=== PATIENT | female | born 1935 | race African-American/Black ===

== ENCOUNTER 2016-05-23 05:26 | Emergency (ER) | payer MEDICARE ==
[~2016-05-23] VITALS: Ht 154.9 cm; Wt 75.7 kg
[2016-05-23] MEDS ORDERED: ACETAMINOPHEN 500 MG TABLET PO ONE (07:00)
[2016-05-23 07:04] VITALS: BP 194/77
--- NOTE | 2016-05-23 07:07 | RAD ---
Left knee, 3 views, 05/23/2016: History: Fall, pain There is moderate marginal spurring at the knee joint, most prominent laterally. There is mild spurring at the patellofemoral articulation. No acute fracture or dislocation is identified. Moderate chondrocalcinosis is present. There is moderate subcutaneous edema anteriorly. IMPRESSION: 1. Moderate degenerative change with chondrocalcinosis. 2. No acute bony abnormality is detected.
--- NOTE | 2016-05-23 07:13 | PHYS DOC ---
Past Medical History Past Medical History: Dementia, High Cholesterol, Hypertension, Hypothyroid Past Surgical History: Appendectomy, Hysterectomy Alcohol Use: None Drug Use: None Adult General Chief Complaint Chief Complaint: MECHANICAL FALL HPI HPI Patient is a 80 year old female who presents with with lateral knee pain after trip and fall yesterday. She landed on anterior lateral knee. She has achy, constant pain, worse with range of motion. She has been able to walk, but has persistent pain. She denies numbness, tingling, weakness, other injury. She specifically denies dizziness to this provider. She denies chest pain, loss of consciousness, vision changes, headache, neck pain, back pain, abdominal pain, dyspnea, nausea or vomiting, diarrhea, dysuria. Review of Systems Review of Systems Constitutional: Denies fever or chills [] Eyes: Denies change in visual acuity, redness, or eye pain [] HENT: Denies nasal congestion or sore throat [] Respiratory: Denies cough or shortness of breath [] Cardiovascular: No additional information not addressed in HPI [] GI: Denies abdominal pain, nausea, vomiting, bloody stools or diarrhea [] : Denies dysuria or hematuria [] Musculoskeletal: Denies back pain [] Integument: Denies rash or skin lesions [] Neurologic: Denies headache, focal weakness or sensory changes [] Endocrine: Denies polyuria or polydipsia [] Current Medications Current Medications Current Medications Medications (Trade) Dose Ordered Sig/Jose Start Time Stop Time Status Last Admin Dose Admin Acetaminophen (Tylenol) 500 mg 1X ONCE 05/23/16 07:00 05/23/16 07:01 DC 05/23/16 06:50 500 MG Allergies Allergies Allergies Coded Allergies Type Severity Reaction Last Updated Verified Penicillins Allergy Intermediate 05/23/16 Yes Physical Exam Physical Exam Constitutional: Well developed, well nourished, no acute distress, non-toxic appearance. [] HENT: Normocephalic, atraumatic, bilateral external ears normal, oropharynx moist, nose normal. [] Eyes: PERRLA, EOMI. [] Neck: Normal range of motion, supple. [] Cardiovascular:Heart rate regular rhythm [] Lungs & Thorax: Bilateral breath sounds clear to auscultation [] Abdomen: Bowel sounds normal, soft, no tenderness. [] Skin: Warm, dry, no erythema, no rash. [] Back: Normal range of motion. [] Extremities: Left lower extremity with slight swelling and ecchymosis to lateral anterior knee with no other obvious deformity or discoloration, has tenderness about left joint line with no patellar tenderness, maintains full range of motion of hip/knee/ankle/toes, equal DP pulses, sensation intact to light touch Neurologic: Alert and oriented X 3, normal motor function, normal sensory function, no focal deficits noted. [] Psychologic: Affect normal, judgement normal, mood normal. [] Current Patient Data Vital Signs Vital Signs Date Time Temp Pulse Resp B/P Pulse Ox O2 Delivery O2 Flow Rate FiO2 05/23/16 07:04 55 20 194/77 95 Room Air 05/23/16 05:45 97.8 97.8 Radiology/Procedures Radiology/Procedures Left knee x-ray as interpreted by me with no acute fracture or dislocation Course & Med Decision Making Course & Med Decision Making Pertinent Labs and Imaging studies reviewed. (See chart for details) Discussed routine care for muscular skeletal injuries. Return precautions given. She understands and agrees with plan. Dragon Disclaimer Dragon Disclaimer This electronic medical record was generated, in whole or in part, using a voice recognition dictation system. Departure Departure Impression: Primary Impression: Left knee pain Disposition: HOME, SELF-CARE Condition: STABLE Referrals: JOSIE ZENDEJAS MD (PCP) Patient Instructions: Knee Pain, [id number] Additional Instructions: Take Tylenol or ibuprofen as needed for pain. Follow-up with your primary care doctor. Return for any concerns. Problem Qualifiers Primary Impression: Left knee pain Chronicity: acute Qualified Code: M25.562 - Pain in left knee Chantel TERRY MD May 23, 2016 07:13
== END 2016-05-23 07:12 | disposition home or self-care (01) ==
LOC: ER 05:26
DX: M25.562 Pain in left knee (principal); E03.9 Hypothyroidism, unspecified; E78.00 Pure hypercholesterolemia, unspecified; F03.90 Unspecified dementia, unspecified severity, without behavioral disturbance, psychotic disturbance, mood disturbance, and anxiety; I10 Essential (primary) hypertension; Z88.0 Allergy status to penicillin; W01.0XXA Fall on same level from slipping, tripping and stumbling without subsequent striking against object, initial encounter; Y93.89 Activity, other specified; Y99.8 Other external cause status; Y92.89 Other specified places as the place of occurrence of the external cause
CPT/HCPCS: 73562; 99284

== ENCOUNTER 2017-07-05 13:19 | Emergency (ER) | payer MEDICARE, OTHER ==
[2017-07-05] MEDS: ACETAMINOPHEN 325 MG TABLET. PO (14:50)
[2017-07-05] MEDS: DIPHTH,PERTUSS(ACELL),TET TOX 0.5 ML DISP.SYRIN. VAX IM (14:50)
[2017-07-05] MEDS: BACITRACIN TOPICAL OINT 14GM TUBE. TP (14:50)
== END 2017-07-05 17:15 | disposition home or self-care (01) ==
LOC: ER 13:19
DX: S00.03XA Contusion of scalp, initial encounter (principal); S40.011A Contusion of right shoulder, initial encounter; S60.221A Contusion of right hand, initial encounter; F03.90 Unspecified dementia, unspecified severity, without behavioral disturbance, psychotic disturbance, mood disturbance, and anxiety; E78.00 Pure hypercholesterolemia, unspecified; E03.9 Hypothyroidism, unspecified; G56.00 Carpal tunnel syndrome, unspecified upper limb; I10 Essential (primary) hypertension; Z88.0 Allergy status to penicillin; W01.198A Fall on same level from slipping, tripping and stumbling with subsequent striking against other object, initial encounter; Y93.89 Activity, other specified; Y99.8 Other external cause status; Y92.89 Other specified places as the place of occurrence of the external cause
CPT/HCPCS: 70450; 70486; 72125; 73030; 73130; 90471; 90715; 99284-25

== ENCOUNTER 2018-06-03 08:18 | Inpatient (IN) | payer MEDICARE, OTHER ==
[~2018-06-03] VITALS: Ht 157.5 cm; Wt 68.5 kg
[~2018-06-03 08:18] MED LIST: ACET325T9 PO; ACET500T68 PO; AMLO10TA8 PO; ASPI-630 PO; CALC-299 PO; CARB200T PO; DONE10TA7 PO; FLAX10003 PO; FURO20TA3 PO; GUAI100L34 PO; HYDR-2761 PO; HYDR12.575 PO; ISOS30TA4 PO; LEVO88TA4 PO; LISI-130 PO; OSEL30CA PO; PRAV40TA2 PO; ZINC30TA2 PO
--- NOTE | 2018-06-03 08:52 | PHYS DOC ---
Past Medical History Past Medical History: Cancer, Dementia, High Cholesterol, Hypertension, Hypothyroid Past Surgical History: Appendectomy, Cancer Surgery, Hysterectomy Additional Information: Denies smoking Alcohol Use: None Drug Use: None Adult General Chief Complaint Chief Complaint: MECHANICAL FALL HPI HPI Patient is a 82 year old female resident of assisted living home brought in by EMS because of a fall. Patient had a fall from her bed that is about 4 feet high when she tried to reach her comb. Patient denies loss of consciousness and complaining of bilateral hip pain and rated her pain as a severe pain. She was not able to ambulated or moving her lower extremities. Review of Systems Review of Systems Constitutional: Denies fever or chills [] Eyes: Denies change in visual acuity, redness, or eye pain [] HENT: Denies nasal congestion or sore throat [] Respiratory: Denies cough or shortness of breath [] Cardiovascular: No additional information not addressed in HPI [] GI: Denies abdominal pain, nausea, vomiting, bloody stools or diarrhea [] : Denies dysuria or hematuria [] Musculoskeletal: Denies back pain, reports joint pain [] Integument: Denies rash or skin lesions [] Neurologic: Denies headache, focal weakness or sensory changes [] Endocrine: Denies polyuria or polydipsia [] All other systems were reviewed and found to be within normal limits, except as documented in this note. Current Medications Current Medications Current Medications Medications (Trade) Dose Ordered Sig/[facility] Start Time Stop Time Status Last Admin Dose Admin Fentanyl Citrate (Fentanyl 2ml Vial) 50 mcg 1X ONCE 06/03/18 09:00 06/03/18 09:01 DC 06/03/18 09:00 50 MCG Allergies Allergies Allergies Coded Allergies Type Severity Reaction Last Updated Verified Penicillins Allergy Intermediate 05/23/16 Yes Physical Exam Physical Exam Constitutional: Well nourished, mild distress, non-toxic appearance. [] HENT: Normocephalic, atraumatic. Eyes: PERRLA, EOMI, conjunctiva normal, no discharge. [] Neck: Normal range of motion, no tenderness, supple, no stridor. [] Cardiovascular:Heart rate regular rhythm, no murmur [] Lungs & Thorax: Bilateral breath sounds clear to auscultation [] Abdomen: Bowel sounds normal, soft, no tenderness, no masses, no pulsatile masses. [] Skin: Warm, dry, no erythema, no rash. [] Back: No tenderness, no CVA tenderness. [] Extremities: Shortening of right lower extremity, painful range of motion of bilateral lower extremity, no deformity or neurovascular deficit, no cyanosis, no clubbing, no edema. [] Neurologic: Alert and oriented X 2, normal motor function, normal sensory function, no focal deficits noted. [] Psychologic: Affect normal, judgement normal, mood normal. [] Current Patient Data Vital Signs Vital Signs Date Time Temp Pulse Resp B/P (MAP) Pulse Ox O2 Delivery O2 Flow Rate FiO2 06/03/18 12:30 84 06/03/18 11:30 96 06/03/18 09:00 16 06/03/18 08:42 97.9 151/74 (99) Room Air 97.9 Lab Values Laboratory Tests Test 06/03/18 08:35 06/03/18 09:28 Prothrombin Time 13.8 SEC (11.7-14.0) Prothrombin Time INR 1.1 (0.8-1.1) PTT 32 SEC (24-38) Sodium Level 143 mmol/L (136-145) Potassium Level 4.3 mmol/L (3.5-5.1) Chloride Level 101 mmol/L (98-107) Carbon Dioxide Level 26 mmol/L (21-32) Anion Gap 16 (6-14) H Blood Urea Nitrogen 16 mg/dL (7-20) Creatinine 1.0 mg/dL (0.6-1.0) Estimated GFR (Cockcroft-Gault) 64.2 BUN/Creatinine Ratio 16 (6-20) Glucose Level 123 mg/dL (70-99) H Calcium Level 9.6 mg/dL (8.5-10.1) Total Bilirubin 0.4 mg/dL (0.2-1.0) Aspartate Amino Transferase (AST) 26 U/L (15-37) Alanine Aminotransferase (ALT) 21 U/L (14-59) Alkaline Phosphatase 100 U/L (46-116) Total Protein 7.9 g/dL (6.4-8.2) Albumin 3.5 g/dL (3.4-5.0) Albumin/Globulin Ratio 0.8 (1.0-1.7) L White Blood Count 11.6 x10^3/uL (4.0-11.0) H Red Blood Count 5.06 x10^6/uL (3.50-5.40) Hemoglobin 14.1 g/dL (12.0-15.5) Hematocrit 43.8 % (36.0-47.0) Mean Corpuscular Volume 87 fL (79-100) Mean Corpuscular Hemoglobin 28 pg (25-35) Mean Corpuscular Hemoglobin Concent 32 g/dL (31-37) Red Cell Distribution Width 14.7 % (11.5-14.5) H Platelet Count 343 x10^3/uL (140-400) Neutrophils (%) (Auto) 91 % (31-73) H Lymphocytes (%) (Auto) 4 % (24-48) L Monocytes (%) (Auto) 4 % (0-9) Eosinophils (%) (Auto) 0 % (0-3) Basophils (%) (Auto) 1 % (0-3) Neutrophils # (Auto) 10.6 x10^3uL (1.8-7.7) H Lymphocytes # (Auto) 0.5 x10^3/uL (1.0-4.8) L Monocytes # (Auto) 0.5 x10^3/uL (0.0-1.1) Eosinophils # (Auto) 0.0 x10^3/uL (0.0-0.7) Basophils # (Auto) 0.1 x10^3/uL (0.0-0.2) Segmented Neutrophils % 83 % (35-66) H Band Neutrophils % 8 % (0-9) Lymphocytes % 4 % (24-48) L Monocytes % 4 % (0-10) Basophils % 1 % (0-3) Platelet Estimate Adequate (ADEQUATE) Large Platelets Few Ovalocytes Few Laboratory Tests 06/03/18 09:28 Laboratory Tests 06/03/18 08:35 EKG EKG [] Radiology/Procedures Radiology/Procedures [facility] [address] [place] [address] IMAGING REPORT Signed PATIENT: NIMCO KELLER ACCOUNT: [id number] : 1935 LOCATION: ER AGE: 82 SEX: F EXAM STATUS: REG ER ORD. PHYSICIAN: BRUCE LOZANO MD REASON: fall PROCEDURE: HIP BILATERAL WITH PELVIS EXAM: AP pelvis, AP and lateral views of both hips DATE: 06/03/2018 8:42 AM INDICATION: patient fell, bilateral hip pain. COMPARISON: No Prior FINDINGS: No evidence of acute fracture or dislocation. Marked osteopenia limits evaluation. Chondrocalcinosis bilateral hip joints and symphysis pubis. Bilateral hip joint space narrowing. Lower lumbar spine and SI joint degenerative changes are also seen. Atherosclerotic vascular calcifications are seen. Of note, stool and gas limits evaluation of the sacrum. IMPRESSION: Within the constraints of osteopenia, no evidence of acute fracture or dislocation. Given degree of osteopenia, if there is persistent clinical concern for fracture, MRI is recommended. Chondrocalcinosis of the hip joints and symphysis pubis, CPPD deposition Bilateral hip joint, SI joints and lower lumbar spine degenerative changes are seen. Electronically signed by: Brayden Stevens MD (06/03/2018 9:14 AM) [facility] DICTATED and SIGNED BY: BRAYDEN STEVENS MD DATE: 06/03/18 0911 [facility] [address] [place] [address] IMAGING REPORT Signed PATIENT: NIMCO KELLER ACCOUNT: [id number] : 1935 LOCATION: ER AGE: 82 SEX: F EXAM STATUS: REG ER ORD. PHYSICIAN: BRUCE LOZANO MD REASON: fall PROCEDURE: CT HEAD AND CERVICAL SPINE WO CT scan of the head without contrast 06/03/2018 Clinical History: Fall with head trauma. Technique: Unenhanced, contiguous, 5 mm axial sections were obtained through the head. One or more of the following individualized dose reduction techniques were utilized for this study: 1. Automated exposure control. 2. Adjustment of the mA and/or kV according to patient size. 3. Use of iterative reconstruction technique. Findings: Comparison study is dated 05/20/2018. There is generalized parenchymal atrophy. Areas of decreased attenuation are seen within the periventricular and subcortical white matter of both cerebral hemispheres consistent with areas of small vessel ischemic disease. No acute parenchymal abnormality is seen. No extra-axial fluid collection is noted. No skull fracture is seen. Mild to moderate mucosal thickening is seen involving the right maxillary sinus and scattered throughout ethmoid air cells. Impression: No acute intracranial abnormality is seen. CT scan of the cervical spine without contrast 06/03/2018 Clinical history: Fall with neck injury. Technique: Unenhanced, contiguous, 0.625 mm axial sections were obtained through the cervical spine. Axial, coronal and sagittal reconstructed images were obtained. One or more of the following individualized dose reduction techniques were utilized for this study: 1. Automated exposure control. 2. Adjustment of the mA and/or kV according to patient size. 3. Use of iterative reconstruction technique. Findings: Comparison study is dated 05/20/2018. Mild lateral curvature of the cervical spine is seen convex to the right. There is straightening of the normal cervical lordosis. Degenerative changes consisting of varying degrees of disc space narrowing, vertebral endplate sclerosis and minimal to mild anterior vertebral body osteophyte formation are seen throughout the cervical disc spaces. Degenerative changes are seen involving the uncovertebral and facet joints bilaterally. Moderate atherosclerotic calcification of the carotid bifurcations is noted. No fracture or subluxation of the cervical vertebrae is seen. Impression: No fracture or subluxation of the cervical vertebra is identified. Electronically signed by: Pradeep De Jesus MD (06/03/2018 10:07 AM) [id number] DICTATED and SIGNED BY: PRADEEP DE JESUS MD DATE: 06/03/18 0956 [facility] [address] [place] [address] IMAGING REPORT Signed PATIENT: NIMCO KELLER ACCOUNT: [id number] : 1935 LOCATION: ER AGE: 82 SEX: F EXAM STATUS: REG ER ORD. PHYSICIAN: BRCUE LOZANO MD REASON: fall, negative x-ray, unable to move bilateral hips PROCEDURE: CT PELVIS WO CONTRAST Examination: CT PELVIS WO CONTRAST History: FALL UNABLE TO MOVE BILATERAL EXTREM Comparison/Correlation: 08/30/2016 CT abdomen and pelvis without contrast Findings: Axial images of pelvis were obtained without contrast. Sagittal and coronal reformatted images provided. Urinary bladder is unremarkable. No enlarged pelvic lymph nodes. Sacroiliac joint spaces are unremarkable for the patient's age. L5-S1 degenerative space narrowing is present. Facet joint degenerative changes are present at L4-5 and L5-S1. Neural foramina are patent. There is narrowing of the left L5-S1 neural foramen. There is concentric disc bulge at L4-5. There is central disc protrusion at L4-5 with associated significant spinal canal stenosis at this level is present. Hip joint spaces are symmetric with mild narrowing. Mild chondral cartilage calcification is suggested involving the femoral heads bilaterally. Impression: No evidence of acute fracture or bony destruction. Degenerative disc disease at L4-5 with central protrusion and significant spinal canal stenosis. Consider follow-up imaging with MRI of the lumbar spine for more complete assessment if clinically warranted. PQRS Compliance Statement: One or more of the following individualized dose reduction techniques were utilized for this examination: 1. Automated exposure control 2. Adjustment of the mA and/or kV according to patient size 3. Use of iterative reconstruction technique Electronically signed by: Todd Meyer MD (06/03/2018 12:29 PM) [id number] DICTATED and SIGNED BY: TODD MEYER MD DATE: 06/03/18 1213 Course & Med Decision Making Course & Med Decision Making Pertinent Labs and Imaging studies reviewed. (See chart for details) Evaluation of patient in ER showed 82-year-old female patient is into processing "brought in by EMS because of a fall and complaining of pain in bilateral hip. Patient had unremarkable x-ray and CT of pelvis and hip but was not able to ambulate. Plan to admit patient with diagnosis of generalized weakness and possible rehabilitation placement. Dragon Disclaimer Dragon Disclaimer This electronic medical record was generated, in whole or in part, using a voice recognition dictation system. Departure Departure Impression: Primary Impression: Generalized weakness Additional Impressions: Fall at snf Confusion Disposition: 09 ADMITTED INPATIENT (at is start the) Admitting Physician: Malinda Wilkes (At 1346) Condition: IMPROVED Referrals: UNKNOWN PCP NAME (PCP) Problem Qualifiers Additional Impressions: Fall at snf Encounter type: subsequent encounter Qualified Codes: W19.XXXD - Unspecified fall, subsequent encounter; Y92.129 - Unspecified place in snf as the place of occurrence of the external cause BRUCE LOZANO MD Jun 03, 2018 08:52
[2018-06-03] MEDS ORDERED: fentaNYL PF VIAL 100 MCG/2 ML VIAL IV ONE (09:00)
[2018-06-03 09:02] LABS: PROTHROMBIN TIME PATIENT 13.8 SEC (11.7-14.0)
[2018-06-03 09:07] LABS: CALCIUM 9.6 mg/dL (8.5-10.1); GFR 64.2; POTASSIUM 4.3 mmol/L (3.5-5.1)
[2018-06-03 09:13] LABS: ALBUMIN 3.5 g/dL (3.4-5.0); ALBUMIN/GLOBULIN RATIO 0.8 (1.0-1.7); TOTAL BILIRUBIN 0.4 mg/dL (0.2-1.0); TOTAL PROTEIN 7.9 g/dL (6.4-8.2)
--- NOTE | 2018-06-03 09:17 | RAD ---
EXAM: AP pelvis, AP and lateral views of both hips DATE: 06/03/2018 8:42 AM INDICATION: patient fell, bilateral hip pain. COMPARISON: No Prior FINDINGS: No evidence of acute fracture or dislocation. Marked osteopenia limits evaluation. Chondrocalcinosis bilateral hip joints and symphysis pubis. Bilateral hip joint space narrowing. Lower lumbar spine and SI joint degenerative changes are also seen. Atherosclerotic vascular calcifications are seen. Of note, stool and gas limits evaluation of the sacrum. IMPRESSION: Within the constraints of osteopenia, no evidence of acute fracture or dislocation. Given degree of osteopenia, if there is persistent clinical concern for fracture, MRI is recommended. Chondrocalcinosis of the hip joints and symphysis pubis, CPPD deposition Bilateral hip joint, SI joints and lower lumbar spine degenerative changes are seen. Electronically signed by: Brayden Garcia MD (06/03/2018 9:14 AM) [facility]
[2018-06-03 09:36] LABS: BASO # 0.1 x10^3/uL (0.0-0.2); BASO % 1 % (0-3); EOS % 0 % (0-3); HEMATOCRIT 43.8 % (36.0-47.0); HEMOGLOBIN 14.1 g/dL (12.0-15.5); LYMPH # 0.5 x10^3/uL (1.0-4.8); LYMPH % 4 % (24-48); MEAN CORPUSCULAR HEMOGLOBIN 28 pg (25-35); MEAN CORPUSCULAR HGB CONC 32 g/dL (31-37); MEAN CORPUSCULAR VOLUME 87 fL (79-100); MONO # 0.5 x10^3/uL (0.0-1.1); MONO % 4 % (0-9); NEUT # 10.6 x10^3uL (1.8-7.7); NEUT % 91 % (31-73); PLATELET COUNT 343 x10^3/uL (140-400); RED BLOOD COUNT 5.06 x10^6/uL (3.50-5.40); RED CELL DISTRIBUTION WIDTH 14.7 % (11.5-14.5); WHITE BLOOD COUNT 11.6 x10^3/uL (4.0-11.0)
--- NOTE | 2018-06-03 10:10 | RAD ---
CT scan of the head without contrast 06/03/2018 Clinical History: Fall with head trauma. Technique: Unenhanced, contiguous, 5 mm axial sections were obtained through the head. One or more of the following individualized dose reduction techniques were utilized for this study: 1. Automated exposure control. 2. Adjustment of the mA and/or kV according to patient size. 3. Use of iterative reconstruction technique. Findings: Comparison study is dated 05/20/2018. There is generalized parenchymal atrophy. Areas of decreased attenuation are seen within the periventricular and subcortical white matter of both cerebral hemispheres consistent with areas of small vessel ischemic disease. No acute parenchymal abnormality is seen. No extra-axial fluid collection is noted. No skull fracture is seen. Mild to moderate mucosal thickening is seen involving the right maxillary sinus and scattered throughout ethmoid air cells. Impression: No acute intracranial abnormality is seen. CT scan of the cervical spine without contrast 06/03/2018 Clinical history: Fall with neck injury. Technique: Unenhanced, contiguous, 0.625 mm axial sections were obtained through the cervical spine. Axial, coronal and sagittal reconstructed images were obtained. One or more of the following individualized dose reduction techniques were utilized for this study: 1. Automated exposure control. 2. Adjustment of the mA and/or kV according to patient size. 3. Use of iterative reconstruction technique. Findings: Comparison study is dated 05/20/2018. Mild lateral curvature of the cervical spine is seen convex to the right. There is straightening of the normal cervical lordosis. Degenerative changes consisting of varying degrees of disc space narrowing, vertebral endplate sclerosis and minimal to mild anterior vertebral body osteophyte formation are seen throughout the cervical disc spaces. Degenerative changes are seen involving the uncovertebral and facet joints bilaterally. Moderate atherosclerotic calcification of the carotid bifurcations is noted. No fracture or subluxation of the cervical vertebrae is seen. Impression: No fracture or subluxation of the cervical vertebra is identified. Electronically signed by: Pradeep De Jesus MD (06/03/2018 10:07 AM) [id number]
[2018-06-03 10:18] LABS: % BANDS 8 % (0-9); % BASOS 1 % (0-3); % LYMPHS 4 % (24-48); % MONOS 4 % (0-10); % SEGS 83 % (35-66); PLT ESTIMATE ADEQUATE (ADEQUATE)
[2018-06-03 10:19] LABS: OVALOCYTES FEW
--- NOTE | 2018-06-03 12:32 | RAD ---
Examination: CT PELVIS WO CONTRAST History: FALL UNABLE TO MOVE BILATERAL EXTREM Comparison/Correlation: 08/30/2016 CT abdomen and pelvis without contrast Findings: Axial images of pelvis were obtained without contrast. Sagittal and coronal reformatted images provided. Urinary bladder is unremarkable. No enlarged pelvic lymph nodes. Sacroiliac joint spaces are unremarkable for the patient's age. L5-S1 degenerative space narrowing is present. Facet joint degenerative changes are present at L4-5 and L5-S1. Neural foramina are patent. There is narrowing of the left L5-S1 neural foramen. There is concentric disc bulge at L4-5. There is central disc protrusion at L4-5 with associated significant spinal canal stenosis at this level is present. Hip joint spaces are symmetric with mild narrowing. Mild chondral cartilage calcification is suggested involving the femoral heads bilaterally. Impression: No evidence of acute fracture or bony destruction. Degenerative disc disease at L4-5 with central protrusion and significant spinal canal stenosis. Consider follow-up imaging with MRI of the lumbar spine for more complete assessment if clinically warranted. PQRS Compliance Statement: One or more of the following individualized dose reduction techniques were utilized for this examination: 1. Automated exposure control 2. Adjustment of the mA and/or kV according to patient size 3. Use of iterative reconstruction technique Electronically signed by: Todd Ibrahim MD (06/03/2018 12:29 PM) [id number]
[2018-06-03 16:10] LABS: BILIRUBIN,URINE NEGATIVE (NEG); COLOR,URINE YELLOW; NITRITE,URINE NEGATIVE (NEG); PROTEIN,URINE 30 mg/dL (NEG-TRACE); UROBILINOGEN,URINE 0.2 mg/dL (0.2 mg/dL)
[2018-06-03 16:14] LABS: CLARITY,URINE CLEAR
[2018-06-03 16:22] LABS: BACTERIA,URINE 0 /HPF (0-FEW); SQUAMOUS EPITHELIAL CELL,UR FEW /LPF; WBC,URINE 0 /HPF (0-4)
[2018-06-03] MEDS: IV NORMAL SALINE 1000ML BAG 1,000 ML IV SCH (16:41)
[2018-06-03] MEDS ORDERED: ACETAMINOPHEN 325 MG TABLET. PO PRN (17:00)
--- NOTE | 2018-06-03 17:18 | HP ---
ADMIT DATE: 06/03/2018 CHIEF COMPLAINT: Fall and mental status change. HISTORY OF PRESENT ILLNESS: The patient is a pleasant middle-aged female, well known to our service. Basically, she fell at her assisted care facility. She is 82 years old, but appears to be somewhat younger than her stated age. She fell from 4 feet, had some associated nausea and mental status change, although she denies any loss of consciousness. Rates her symptoms at 7/10, it is worse with moving. I discussed the case with ER physician. It appears the patient has intractable right lower extremity pain, but the CT and x-rays were negative. We are going to admit the patient and get social service liaison involved, perhaps she needs to go to a long-term care but at least to a senior living. PAST MEDICAL HISTORY: Dementia, hysterectomy, hyperlipidemia, hypertension, hypothyroidism, appendectomy. ALLERGIES: PENICILLIN. FAMILY HISTORY: Coronary artery disease. SOCIAL HISTORY: She lives at assisted care. She does not drink, smoke or take drugs. She is retired. MEDICATIONS: Reviewed. She is on 14 including Tamiflu, donepezil, pravastatin, Imdur, amlodipine, lisinopril, aspirin, hydrocodone, Tylenol, calcium, hydrochlorothiazide, Robitussin, Synthroid and flaxseed oil. REVIEW OF SYSTEMS: GENERAL: No history of weight change, weakness or fevers. SKIN: No bruising, hair changes or rashes. EYES: No blurred, double or loss of vision. NOSE AND THROAT: No history of nosebleeds, hoarseness or sore throat. HEART: No history of palpitations, chest pain or shortness of breath on exertion. LUNGS: Denies cough, hemoptysis, wheezing or shortness of breath. GASTROINTESTINAL: Denies changes in appetite, nausea, vomiting, diarrhea or constipation. GENITOURINARY: No history of frequency, urgency, hesitancy or nocturia. NEUROLOGIC: She complains of weakness. PSYCHIATRIC: No history of panic, anxiety or depression. ENDOCRINE: No history of heat or cold intolerance, polyuria or polydipsia. EXTREMITIES: Denies muscle weakness, joint pain, pain on walking or stiffness. PHYSICAL EXAMINATION: VITAL SIGNS: Temperature afebrile, pulse 80, respirations 16, blood pressure 151/74. GENERAL: She is alert, a little bit confused at times. HEART: Normal S1, S2. LUNGS: Clear to auscultation. ABDOMEN: Soft. EXTREMITIES: No edema. SKIN: No rashes. ENDOCRINE: No thyromegaly. LYMPHATICS: No cervical nodes. HEMATOPOIETIC: No bruising. PSYCHIATRIC: She seems a little depressed. LABORATORY DATA: Hematology is normal other than a white count of 11.6. Electrolytes are normal other than a glucose of 123 and anion gap of 16. INR is 1. UA is pending. Pelvic CT showed no acute disease. Head and neck CT was negative for acute changes. Hip and pelvis CT showed osteopenia, but no evidence of acute fracture. ASSESSMENT AND PLAN: Fall, hip pain, osteopenia, mild leukocytosis, anion gap metabolic acidosis. The patient will be admitted. We will start empiric IV antibiotics, IV fluids, p.r.n. narcotics, p.r.n. Zofran. Home meds. PT, OT. Frequent labs. Full code. Deep venous thrombosis prophylaxis. . WILIAM HAINES DO DR: AUDREY/stewart JOB#: [id number] / [id number]
[2018-06-03] MEDS ORDERED: LEVO100T5 PO (18:17)
[2018-06-03 19:24] VITALS: BP 158/72
[2018-06-03] MEDS: HYDROcodone/APAP 5/325MG 1 TAB TABLET PO PRN (23:14)
[2018-06-03 23:25] VITALS: BP 141/65
[2018-06-04 03:20] VITALS: BP 114/54
[2018-06-04] MEDS: HYDROcodone/APAP 5/325MG 1 TAB TABLET PO PRN ×2 (04:43→22:07)
[2018-06-04] MEDS: IV NORMAL SALINE 1000ML BAG 1,000 ML IV SCH ×2 (04:43→22:24)
[2018-06-04 07:00] VITALS: BP 159/65
[2018-06-04 11:00] VITALS: BP 137/58
--- NOTE | 2018-06-04 12:53 | PDOC ---
PROGRESS NOTES Chief Complaint Chief Complaint Acute metabolic encephalopathy - likely 2/2 influenza, toxic from infection. Hypokalemia - will replace her potassium, check mag Alzheimers dementia - her current mental status is not consistent with baseline per SNF nursing staff MT - IVF improved, this was likely vasomotor from her influenza she was treated for last month Fall - will obtain knee x-ray History of Present Illness History of Present Illness 82-year-old female w/PMHx Alzheimers presents to ER via EMS from her assisted living at [facility] (resident since 2016), for altered mental status. Some falls reported today by staff, but she then seemed fine, but then confusion later, and staff called EMS.. She fell from 4 feet, had some associated nausea and mental status change, although she denies any loss of consciousness. Rates her right knee pain at 7/10, it is worse with moving. CT and x-rays were negative. She has been yelling at staff overnight and this morning, refusing some care. Her daughter called from [facility] to discuss her case, states it sounds as though her confusion is getting closer to baseline, however, she has yet to have repeat therapy evaluations. Plan: PT/OT Knee x-ray on right Topical voltaren D/C IV levaquin, does not appear to have pneumonia on examination Vitals Vitals Vital Signs Date Time Temp Pulse Resp B/P (MAP) Pulse Ox O2 Delivery O2 Flow Rate FiO2 06/04/18 11:00 98.1 74 16 137/58 (84) 92 Room Air 98.1 Physical Exam General: Alert, No acute distress Heart: Normal S1 Lungs: Clear Abdomen: Normal bowel sounds Extremities: No clubbing Skin: No significant lesion Labs LABS Laboratory Tests Test 06/03/18 16:00 Urine Collection Type U cath Urine Color Yellow Urine Clarity Clear Urine pH 6.0 Urine Specific [place] 1.010 Urine Protein 30 mg/dL (NEG-TRACE) Urine Glucose (UA) Negative mg/dL (NEG) Urine Ketones (Stick) Negative mg/dL (NEG) Urine Blood Negative (NEG) Urine Nitrite Negative (NEG) Urine Bilirubin Negative (NEG) Urine Urobilinogen Dipstick 0.2 mg/dL (0.2 mg/dL) Urine Leukocyte Esterase Negative (NEG) Urine RBC 1-2 /HPF (0-2) Urine WBC 0 /HPF (0-4) Urine Squamous Epithelial Cells Few /LPF Urine Transitional Epithelial Cells Occ /LPF Urine Renal Epithelial Cells Occ /LPF Urine Bacteria 0 /HPF (0-FEW) Assessment and Plan Assessmemt and Plan Problems Medical Problems: (1) Fall at retirement Status: Acute Comment Review of Relevant I have reviewed the following items glenna (where applicable) has been applied. Labs Laboratory Tests Test 06/03/18 08:35 06/03/18 09:28 06/03/18 16:00 Prothrombin Time 13.8 SEC (11.7-14.0) Prothromb Time International Ratio 1.1 (0.8-1.1) Activated Partial Thromboplast Time 32 SEC (24-38) Sodium Level 143 mmol/L (136-145) Potassium Level 4.3 mmol/L (3.5-5.1) Chloride Level 101 mmol/L (98-107) Carbon Dioxide Level 26 mmol/L (21-32) Anion Gap 16 (6-14) Blood Urea Nitrogen 16 mg/dL (7-20) Creatinine 1.0 mg/dL (0.6-1.0) Estimated GFR (Cockcroft-Gault) 64.2 BUN/Creatinine Ratio 16 (6-20) Glucose Level 123 mg/dL (70-99) Calcium Level 9.6 mg/dL (8.5-10.1) Total Bilirubin 0.4 mg/dL (0.2-1.0) Aspartate Amino Transf (AST/SGOT) 26 U/L (15-37) Alanine Aminotransferase (ALT/SGPT) 21 U/L (14-59) Alkaline Phosphatase 100 U/L (46-116) Total Protein 7.9 g/dL (6.4-8.2) Albumin 3.5 g/dL (3.4-5.0) Albumin/Globulin Ratio 0.8 (1.0-1.7) White Blood Count 11.6 x10^3/uL (4.0-11.0) Red Blood Count 5.06 x10^6/uL (3.50-5.40) Hemoglobin 14.1 g/dL (12.0-15.5) Hematocrit 43.8 % (36.0-47.0) Mean Corpuscular Volume 87 fL (79-100) Mean Corpuscular Hemoglobin 28 pg (25-35) Mean Corpuscular Hemoglobin Concent 32 g/dL (31-37) Red Cell Distribution Width 14.7 % (11.5-14.5) Platelet Count 343 x10^3/uL (140-400) Neutrophils (%) (Auto) 91 % (31-73) Lymphocytes (%) (Auto) 4 % (24-48) Monocytes (%) (Auto) 4 % (0-9) Eosinophils (%) (Auto) 0 % (0-3) Basophils (%) (Auto) 1 % (0-3) Neutrophils # (Auto) 10.6 x10^3uL (1.8-7.7) Lymphocytes # (Auto) 0.5 x10^3/uL (1.0-4.8) Monocytes # (Auto) 0.5 x10^3/uL (0.0-1.1) Eosinophils # (Auto) 0.0 x10^3/uL (0.0-0.7) Basophils # (Auto) 0.1 x10^3/uL (0.0-0.2) Segmented Neutrophils % 83 % (35-66) Band Neutrophils % 8 % (0-9) Lymphocytes % 4 % (24-48) Monocytes % 4 % (0-10) Basophils % 1 % (0-3) Platelet Estimate Adequate (ADEQUATE) Large Platelets Few Ovalocytes Few Urine Collection Type U cath Urine Color Yellow Urine Clarity Clear Urine pH 6.0 Urine Specific [place] 1.010 Urine Protein 30 mg/dL (NEG-TRACE) Urine Glucose (UA) Negative mg/dL (NEG) Urine Ketones (Stick) Negative mg/dL (NEG) Urine Blood Negative (NEG) Urine Nitrite Negative (NEG) Urine Bilirubin Negative (NEG) Urine Urobilinogen Dipstick 0.2 mg/dL (0.2 mg/dL) Urine Leukocyte Esterase Negative (NEG) Urine RBC 1-2 /HPF (0-2) Urine WBC 0 /HPF (0-4) Urine Squamous Epithelial Cells Few /LPF Urine Transitional Epithelial Cells Occ /LPF Urine Renal Epithelial Cells Occ /LPF Urine Bacteria 0 /HPF (0-FEW) Laboratory Tests Test 06/03/18 16:00 Urine Collection Type U cath Urine Color Yellow Urine Clarity Clear Urine pH 6.0 Urine Specific [place] 1.010 Urine Protein 30 mg/dL (NEG-TRACE) Urine Glucose (UA) Negative mg/dL (NEG) Urine Ketones (Stick) Negative mg/dL (NEG) Urine Blood Negative (NEG) Urine Nitrite Negative (NEG) Urine Bilirubin Negative (NEG) Urine Urobilinogen Dipstick 0.2 mg/dL (0.2 mg/dL) Urine Leukocyte Esterase Negative (NEG) Urine RBC 1-2 /HPF (0-2) Urine WBC 0 /HPF (0-4) Urine Squamous Epithelial Cells Few /LPF Urine Transitional Epithelial Cells Occ /LPF Urine Renal Epithelial Cells Occ /LPF Urine Bacteria 0 /HPF (0-FEW) Medications Current Medications Fentanyl Citrate (Fentanyl 2ml Vial) 50 mcg 1X ONCE IV Last administered on 06/03/18at 09:00; Start 06/03/18 at 09:00; Stop 06/03/18 at 09:01; Status DC Sodium Chloride 1,000 ml @ 75 mls/hr [id number] IV Last administered on 06/04/18at 04:43; Start 06/03/18 at 16:00 Levofloxacin/ Dextrose 50 ml @ 50 mls/hr Q24H IV Last administered on 06/03/18at 16:41; Start 06/03/18 at 16:00 Acetaminophen/ Hydrocodone Bitart (Lortab 5/325) 1 tab PRN Q4HRS PRN PO PAIN Last administered on 06/04/18at 04:43; Start 06/03/18 at 17:00 Acetaminophen (Tylenol) 650 mg PRN Q6HRS PRN PO HEADACHE/FEVER; Start 06/03/18 at 17:00 Lactobacillus Rhamnosus (Culturelle) 1 cap BID PO ; Start 06/04/18 at 21:00 Active Scripts Active Tylenol (Acetaminophen) 325 Mg Tablet 1-2 Tab PO QID Reported Levothyroxine Sodium 100 Mcg Tablet 1 Tab PO DAILY Hydrocodone-Apap 5-325 (Hydrocodone Bit/Acetaminophen) 1 Each Tablet 1 Tab PO PRN Q6HRS PRN Pravastatin Sodium 40 Mg Tablet 40 Mg PO DAILY Lisinopril 40 Mg Tablet 40 Mg PO DAILY Isosorbide Mononitrate Er (Isosorbide Mononitrate) 30 Mg Tab.er.24h 30 Mg PO DAILY Flax Oil (Flaxseed Oil) 1,000 Mg Capsule 1,000 Mg PO DAILY Donepezil Hcl 10 Mg Tablet 1 Tab PO DAILY Calcium Magnesium + D Tablet (Calcium Carb/Mag Oxide/Vit D3) 1 Each Tablet 1 Each PO DAILY Aspirin 81 Mg Tab.chew 1 Tab PO DAILY Amlodipine Besylate 10 Mg Tablet 10 Mg PO DAILY Vitals/I & O Vital Sign - Last 24 Hours 06/03/18 06/03/18 06/03/18 06/03/18 17:47 19:24 20:18 23:14 Temp 98.4 98.4 Pulse 89 Resp 17 16 B/P (MAP) 158/72 (100) Pulse Ox 97 O2 Delivery Room Air Room Air Room Air Room Air 06/03/18 06/04/18 06/04/18 06/04/18 23:25 03:20 04:43 05:43 Temp 98.8 98.4 98.8 98.4 Pulse 83 73 Resp 19 17 18 16 B/P (MAP) 141/65 (90) 114/54 (74) Pulse Ox 97 96 O2 Delivery Room Air Room Air Room Air Room Air 06/04/18 06/04/18 06/04/18 07:00 08:00 11:00 Temp 98.1 98.1 98.1 98.1 Pulse 75 74 Resp 18 16 B/P (MAP) 159/65 (96) 137/58 (84) Pulse Ox 94 92 O2 Delivery Room Air Room Air Room Air Intake and Output 06/03/18 06/03/18 06/04/18 15:00 23:00 07:00 Intake Total 1250 ml Balance 1250 ml MARIAM POWERS MD Jun 04, 2018 12:53
[2018-06-04] MEDS ORDERED: ACETAMINOPHEN 325 MG TABLET. PO PRN (13:15)
[2018-06-04] MEDS: CALCIUM CARB/VIT D3 500/200 TABLET. PO SCH (14:19)
[2018-06-04] MEDS: LISINOPRIL 20 MG TABLET PO SCH (14:19)
[2018-06-04] MEDS: ASPIRIN CHEWABLE 81 MG TABLET. PO SCH (14:19)
[2018-06-04] MEDS: ISOSORBIDE MONONITRATE ER 30 MG TAB.ER.24H PO SCH (14:19)
[2018-06-04] MEDS: LEVOTHYROXINE 100 MCG TABLET PO SCH (14:20)
[2018-06-04] MEDS: amLODIPine BESYLATE 10 MG TABLET PO SCH (14:20)
[2018-06-04 15:00] VITALS: BP 147/65
[2018-06-04 19:00] VITALS: BP 132/59
[2018-06-04] MEDS: ATORVASTATIN CALCIUM 10 MG TABLET. PO SCH (22:07)
[2018-06-04] MEDS: LACTOBACILLUS RHAMNOSUS GG 1 CAPSULE. PO SCH (22:07)
[2018-06-04 23:00] VITALS: BP 165/70
--- NOTE | 2018-06-04 23:53 | RAD ---
KNEE LEFT 2V History: Pain and swelling, fall Comparison: May 23, 2016 Findings: 2 views left knee are submitted. There is chondrocalcinosis. There is loose body posterior to the medial compartment. There are prominent osteophytes lateral compartment with moderate to severe joint space narrowing, also moderate to severe joint space narrowing of the lateral compartment. There is suprapatellar joint effusion. No acute fracture is identified. Impression: 1. There is chondrocalcinosis. There is osteoarthritic change of the medial and lateral compartments. There is suprapatellar joint effusion. Electronically signed by: Brian Miller MD (06/04/2018 11:50 PM) [facility]
[2018-06-05] VITALS (7 sets, daily range): BP systolic 144–174; BP diastolic 60–90
[2018-06-05] MEDS: LEVOTHYROXINE 100 MCG TABLET PO SCH (05:51)
--- NOTE | 2018-06-05 08:08 | PDOC ---
PROGRESS NOTES Chief Complaint Chief Complaint Acute metabolic encephalopathy - likely 2/2 influenza, toxic from infection. Hypokalemia - will replace her potassium, check mag Alzheimers dementia - her current mental status is not consistent with baseline per SNF nursing staff. MT - IVF improved, this was likely vasomotor from her influenza she was treated for last month Fall - will obtain knee x-ray History of Present Illness History of Present Illness 82-year-old female w/PMHx Alzheimers presents to ER via EMS from her assisted living at [facility] (resident since 2016), for altered mental status. Some falls reported today by staff, but she then seemed fine, but then confusion later, and staff called EMS.. She fell from 4 feet, had some associated nausea and mental status change, although she denies any loss of consciousness. Rates her right knee pain at 7/10, it is worse with moving. CT and x-rays were negative. 06/04: Right knee Xr - mild effusion, OA. PT and OT recommend custodial facility on discharge. Last night c/o severe left ankle pain when working with therapy and [employer]. She has been yelling at staff overnight and this morning, refusing some care. Her daughter called from [place] to discuss her case, states it sounds as though her confusion is getting closer to baseline. Ankle XR negative for fracture Family insistent this is not her. 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 Labs Laboratory Tests Test 06/03/18 08:35 06/03/18 09:28 06/03/18 16:00 06/03/18 18:40 Prothrombin Time 13.8 SEC (11.7-14.0) Prothromb Time International Ratio 1.1 (0.8-1.1) Activated Partial Thromboplast Time 32 SEC (24-38) Sodium Level 143 mmol/L (136-145) Potassium Level 4.3 mmol/L (3.5-5.1) Chloride Level 101 mmol/L (98-107) Carbon Dioxide Level 26 mmol/L (21-32) Anion Gap 16 (6-14) Blood Urea Nitrogen 16 mg/dL (7-20) Creatinine 1.0 mg/dL (0.6-1.0) Estimated GFR (Cockcroft-Gault) 64.2 BUN/Creatinine Ratio 16 (6-20) Glucose Level 123 mg/dL (70-99) Calcium Level 9.6 mg/dL (8.5-10.1) Total Bilirubin 0.4 mg/dL (0.2-1.0) Aspartate Amino Transf (AST/SGOT) 26 U/L (15-37) Alanine Aminotransferase (ALT/SGPT) 21 U/L (14-59) Alkaline Phosphatase 100 U/L (46-116) Total Protein 7.9 g/dL (6.4-8.2) Albumin 3.5 g/dL (3.4-5.0) Albumin/Globulin Ratio 0.8 (1.0-1.7) White Blood Count 11.6 x10^3/uL (4.0-11.0) Red Blood Count 5.06 x10^6/uL (3.50-5.40) Hemoglobin 14.1 g/dL (12.0-15.5) Hematocrit 43.8 % (36.0-47.0) Mean Corpuscular Volume 87 fL (79-100) Mean Corpuscular Hemoglobin 28 pg (25-35) Mean Corpuscular Hemoglobin Concent 32 g/dL (31-37) Red Cell Distribution Width 14.7 % (11.5-14.5) Platelet Count 343 x10^3/uL (140-400) Neutrophils (%) (Auto) 91 % (31-73) Lymphocytes (%) (Auto) 4 % (24-48) Monocytes (%) (Auto) 4 % (0-9) Eosinophils (%) (Auto) 0 % (0-3) Basophils (%) (Auto) 1 % (0-3) Neutrophils # (Auto) 10.6 x10^3uL (1.8-7.7) Lymphocytes # (Auto) 0.5 x10^3/uL (1.0-4.8) Monocytes # (Auto) 0.5 x10^3/uL (0.0-1.1) Eosinophils # (Auto) 0.0 x10^3/uL (0.0-0.7) Basophils # (Auto) 0.1 x10^3/uL (0.0-0.2) Segmented Neutrophils % 83 % (35-66) Band Neutrophils % 8 % (0-9) Lymphocytes % 4 % (24-48) Monocytes % 4 % (0-10) Basophils % 1 % (0-3) Platelet Estimate Adequate (ADEQUATE) Large Platelets Few Ovalocytes Few Urine Collection Type U cath Urine Color Yellow Urine Clarity Clear Urine pH 6.0 Urine Specific [place] 1.010 Urine Protein 30 mg/dL (NEG-TRACE) Urine Glucose (UA) Negative mg/dL (NEG) Urine Ketones (Stick) Negative mg/dL (NEG) Urine Blood Negative (NEG) Urine Nitrite Negative (NEG) Urine Bilirubin Negative (NEG) Urine Urobilinogen Dipstick 0.2 mg/dL (0.2 mg/dL) Urine Leukocyte Esterase Negative (NEG) Urine RBC 1-2 /HPF (0-2) Urine WBC 0 /HPF (0-4) Urine Squamous Epithelial Cells Few /LPF Urine Transitional Epithelial Cells Occ /LPF Urine Renal Epithelial Cells Occ /LPF Urine Bacteria 0 /HPF (0-FEW) Nasal Screen MRSA (PCR) Negative (Negative) Medications Current Medications Fentanyl Citrate (Fentanyl 2ml Vial) 50 mcg 1X ONCE IV Last administered on 06/03/18at 09:00; Start 06/03/18 at 09:00; Stop 06/03/18 at 09:01; Status DC Sodium Chloride 1,000 ml @ 75 mls/hr [id number] IV Last administered on 06/04/18at 22:24; Start 06/03/18 at 16:00 Levofloxacin/ Dextrose 50 ml @ 50 mls/hr Q24H IV Last administered on 06/03/18at 16:41; Start 06/03/18 at 16:00; Stop 06/04/18 at 13:44; Status DC Acetaminophen/ Hydrocodone Bitart (Lortab 5/325) 1 tab PRN Q4HRS PRN PO MODERATE - SEVERE PAIN Last administered on 06/04/18 22:07; Start 06/03/18 at 17: 00 Acetaminophen (Tylenol) 650 mg PRN Q6HRS PRN PO HEADACHE/FEVER Last administered on 06/05/18 03:19; Start 06/03/18 at 17:00 Lactobacillus Rhamnosus (Culturelle) 1 cap BID PO Last administered on 22:07; Start 06/04/18 at 21:00 Acetaminophen (Tylenol) 325 mg PRN QID PRN PO MILD PAIN Last administered on 17:34; Start 06/04/18 at 13:15 Amlodipine Besylate (Norvasc) 10 mg DAILY PO Last administered on 06/04/18 14: 20; Start 06/04/18 at 14:00 Aspirin (Children'S Aspirin) 81 mg DAILY PO Last administered on 06/04/18 14:19 ; Start 06/04/18 at 14:00 Isosorbide Mononitrate (Imdur) 30 mg DAILY PO Last administered on 06/04/18 14: 19; Start 06/04/18 at 14:00 Levothyroxine Sodium (Synthroid) 100 mcg DAILY06 PO Last administered on 05:51; Start 06/04/18 at 14:00 Lisinopril (Prinivil) 40 mg DAILY PO Last administered on 06/04/18 14:19; Start 06/04/18 at 14:00 Calcium/Vitamin D (Oscal D 500mg/ 200uts) 1 tab [id number] PO Last administered on 06/04/18at 14:19; Start 06/04/18 at 14:00 Non-Formulary Medication (Flaxseed Oil (Flax Oil)) 1,000 mg DAILY PO ; Start 06/05/18 at 09:00; Status UNV Atorvastatin Calcium (Lipitor) 10 mg QHS PO Last administered on 06/04/18at 22:07 ; Start 06/04/18 at 21:00 Active Scripts Active Tylenol (Acetaminophen) 325 Mg Tablet 1-2 Tab PO QID Reported Levothyroxine Sodium 100 Mcg Tablet 1 Tab PO DAILY Hydrocodone-Apap 5-325 (Hydrocodone Bit/Acetaminophen) 1 Each Tablet 1 Tab PO PRN Q6HRS PRN Pravastatin Sodium 40 Mg Tablet 40 Mg PO DAILY Lisinopril 40 Mg Tablet 40 Mg PO DAILY Isosorbide Mononitrate Er (Isosorbide Mononitrate) 30 Mg Tab.er.24h 30 Mg PO DAILY Flax Oil (Flaxseed Oil) 1,000 Mg Capsule 1,000 Mg PO DAILY Donepezil Hcl 10 Mg Tablet 1 Tab PO DAILY Calcium Magnesium + D Tablet (Calcium Carb/Mag Oxide/Vit D3) 1 Each Tablet 1 Each PO DAILY Aspirin 81 Mg Tab.chew 1 Tab PO DAILY Amlodipine Besylate 10 Mg Tablet 10 Mg PO DAILY Vitals/I & O Vital Sign - Last 24 Hours 06/04/18 06/04/18 06/04/18 06/04/18 11:00 14:19 14:19 14:20 Temp 98.1 98.1 Pulse 74 74 74 74 Resp 16 B/P (MAP) 137/58 (84) 137/58 137/58 137/58 Pulse Ox 92 O2 Delivery Room Air 06/04/18 06/04/18 06/04/18 06/04/18 15:00 19:00 20:15 22:07 Temp 97.9 99.2 97.9 99.2 Pulse 100 79 Resp 16 18 16 B/P (MAP) 147/65 (92) 132/59 (83) Pulse Ox 96 91 91 O2 Delivery Room Air Room Air Room Air Room Air 06/04/18 06/04/18 06/05/18 06/05/18 23:00 23:07 03:00 07:00 Temp 97.8 100.4 98.5 97.8 100.4 98.5 Pulse 78 79 68 Resp 18 16 18 16 B/P (MAP) 165/70 (101) 148/63 (91) 159/60 (93) Pulse Ox 94 96 92 O2 Delivery Room Air Room Air Room Air Room Air Intake and Output 06/04/18 06/04/18 06/05/18 14:59 22:59 06:59 Intake Total 100 ml Balance 100 ml Images Right knee XR - There is chondrocalcinosis. There is osteoarthritic change of the medial and lateral compartments. There is suprapatellar joint effusion. Left ankle - Within the constraints of osteopenia no evidence for acute fracture or dislocation. If there is persistent clinical concern for fracture, follow-up radiographs in 10-14 days is recommended. MARIAM POWERS MD Jun 05, 2018 08:07
[2018-06-05] MEDS: CALCIUM CARB/VIT D3 500/200 TABLET. PO SCH (08:22)
[2018-06-05] MEDS ORDERED: NON FORMULARY ITEM (Flaxseed Oil (Flax Oil) 1,000 MG) PO SCH (09:00)
[2018-06-05] MEDS: LACTOBACILLUS RHAMNOSUS GG 1 CAPSULE. PO SCH ×2 (09:50→21:35)
[2018-06-05] MEDS: ASPIRIN CHEWABLE 81 MG TABLET. PO SCH (09:50)
[2018-06-05] MEDS: LISINOPRIL 20 MG TABLET PO SCH (09:51)
[2018-06-05] MEDS: ISOSORBIDE MONONITRATE ER 30 MG TAB.ER.24H PO SCH (09:53)
[2018-06-05] MEDS: amLODIPine BESYLATE 10 MG TABLET PO SCH (09:54)
--- NOTE | 2018-06-05 10:58 | RAD ---
EXAM: AP, oblique and lateral views of the left ankle DATE: 06/05/2018 10:06 AM INDICATION: LEFT ANKLE PAIN/ FALL COMPARISON: No Prior FINDINGS: Decreased bone mineral density. No evidence of acute fracture or dislocation. Talar dome is grossly intact. Ankle mortise is congruent. Small left ankle joint effusion. Chondrocalcinosis ankle joint. IMPRESSION: Within the constraints of osteopenia no evidence for acute fracture or dislocation. If there is persistent clinical concern for fracture, follow-up radiographs in 10-14 days is recommended. Electronically signed by: Brayden Garcia MD (06/05/2018 10:55 AM) [id number]
[2018-06-05] MEDS: IV NORMAL SALINE 1000ML BAG 1,000 ML IV SCH ×2 (12:30→22:37)
[2018-06-05] MEDS: DICLOFENAC SODIUM 1% TOPICAL GEL 100GM TUBE. TP SCH ×2 (12:56→22:37)
--- NOTE | 2018-06-05 15:36 | PDOC2 ---
NEUROLOGY CONSULT Date of Admission Date of Admission DATE: 06/05/18 TIME: 15:26 Reason for Consult Reason for Consult: Altered mental status, falls Referring Physician Referring Physician: Dr. Mcdonnell Source Source: Caregiver, Chart review, Patient History of Present Illness History of Present Illness The patient is an 82-year-old right-handed female admitted with possible fall at her assisted living. I spoke to the patient's niece. The patient's room was in disarray and it looked like the patient was looking for something. The patient was on the floor but the daughter thinks she was looking for something and did not actually fall. I last saw the patient 2 years ago when she was admitted for confusion and I made a diagnosis of Alzheimer's disease based on a year-long decline. Imaging studies and laboratory studies were negative for other causes. The patient had been on donepezil. The patient's daughter who is power of tax attorney lives in [place]. The patient was here 2 weeks ago for altered mental status. Neurology was not consulted. The patient was found to have influenza A and was given Tamiflu and hydration and did improve, but she was sent back to her assisted living. The niece is fairly sure that the patient is no longer able to safely be in assisted living. There is no history of stroke, seizure, or head injury. Past Medical History Cardiovascular: HTN, Hyperlipidemia CENTRAL NERVOUS SYSTEM: Dementia (Alzheimer's) Heme/Onc: Cancer (NHL) Musculoskeletal: Osteoarthritis Renal/: UTI Endocrine: Hypothyroidism Past Surgical History Past Surgical History: Other (resection of thyroid cancer) Family History Family History: No pertinent hx Social History Social History , lives in assisted living, no alcohol or tobacco Current Medications Current Medications Current Medications Fentanyl Citrate (Fentanyl 2ml Vial) 50 mcg 1X ONCE IV Last administered on 06/03/18at 09:00; Start 06/03/18 at 09:00; Stop 06/03/18 at 09:01; Status DC Sodium Chloride 1,000 ml @ 75 mls/hr [id number] IV Last administered on 06/05/18at 12:30; Start 06/03/18 at 16:00 Levofloxacin/ Dextrose 50 ml @ 50 mls/hr Q24H IV Last administered on 06/03/18at 16:41; Start 06/03/18 at 16:00; Stop 06/04/18 at 13:44; Status DC Acetaminophen/ Hydrocodone Bitart (Lortab 5/325) 1 tab PRN Q4HRS PRN PO MODERATE - SEVERE PAIN Last administered on 06/04/18 22:07; Start 06/03/18 at 17: 00 Acetaminophen (Tylenol) 650 mg PRN Q6HRS PRN PO HEADACHE/FEVER Last administered on 06/05/18 03:19; Start 06/03/18 at 17:00 Lactobacillus Rhamnosus (Culturelle) 1 cap BID PO Last administered on 09:50; Start 06/04/18 at 21:00 Acetaminophen (Tylenol) 325 mg PRN QID PRN PO MILD PAIN Last administered on 17:34; Start 06/04/18 at 13:15 Amlodipine Besylate (Norvasc) 10 mg DAILY PO Last administered on 06/05/18 09: 54; Start 06/04/18 at 14:00 Aspirin (Children'S Aspirin) 81 mg DAILY PO Last administered on 06/05/18 09:50 ; Start 06/04/18 at 14:00 Isosorbide Mononitrate (Imdur) 30 mg DAILY PO Last administered on 06/05/18 09: 53; Start 06/04/18 at 14:00 Levothyroxine Sodium (Synthroid) 100 mcg DAILY06 PO Last administered on 05:51; Start 06/04/18 at 14:00 Lisinopril (Prinivil) 40 mg DAILY PO Last administered on 06/05/18 09:51; Start 06/04/18 at 14:00 Calcium/Vitamin D (Oscal D 500mg/ 200uts) 1 tab [id number] PO Last administered on 06/05/18 08:22; Start 06/04/18 at 14:00 Non-Formulary Medication (Flaxseed Oil (Flax Oil)) 1,000 mg DAILY PO ; Start 06/05/18 at 09:00; Status UNV Atorvastatin Calcium (Lipitor) 10 mg QHS PO Last administered on 06/04/18 22:07 ; Start 06/04/18 at 21:00 Diclofenac Sodium (Voltaren) 1 agata BID TP Last administered on 06/05/18 12:56; Start 06/05/18 at 12:00 Active Scripts Active Tylenol (Acetaminophen) 325 Mg Tablet 1-2 Tab PO QID Reported Levothyroxine Sodium 100 Mcg Tablet 1 Tab PO DAILY Hydrocodone-Apap 5-325 (Hydrocodone Bit/Acetaminophen) 1 Each Tablet 1 Tab PO PRN Q6HRS PRN Pravastatin Sodium 40 Mg Tablet 40 Mg PO DAILY Lisinopril 40 Mg Tablet 40 Mg PO DAILY Isosorbide Mononitrate Er (Isosorbide Mononitrate) 30 Mg Tab.er.24h 30 Mg PO DAILY Flax Oil (Flaxseed Oil) 1,000 Mg Capsule 1,000 Mg PO DAILY Donepezil Hcl 10 Mg Tablet 1 Tab PO DAILY Calcium Magnesium + D Tablet (Calcium Carb/Mag Oxide/Vit D3) 1 Each Tablet 1 Each PO DAILY Aspirin 81 Mg Tab.chew 1 Tab PO DAILY Amlodipine Besylate 10 Mg Tablet 10 Mg PO DAILY Allergies Allergies: Coded Allergies: Penicillins (Verified Allergy, Intermediate, 05/23/16) clarithromycin (Verified Allergy, Intermediate, 06/04/18) tetanus toxoid, adsorbed (Verified Allergy, Intermediate, 06/04/18) ROS Review of System Negative for fever, chills, weight loss, shortness of breath, chest pain, indigestion, hematochezia, melena, and dysuria. Full 14-point review of systems is negative. Physical Exam Physical Examination General: Well-developed, well-nourished female in no acute distress HEENT: Normocephalic andatraumatic. Temporal arteriespulsatile and nontender. Neck: Supple without bruit, no meningismus Musculoskeletal: Stability:see neurologic. Gait exam:see neurologic. Tone:see neurologic. Strength:see neurologic. Neurological: Mental Status:orientation, memory, attention span/concentration, language, fund of knowledge: Alert, knows her name, does not know the name of the hospital , does not know the date, has some trouble with naming, perseverates. Cranial Nerves:Pupils equal and reactive to light, extraocular movements areintact, visual escobar are full to confrontation. Facial sensation is normal. There is no facial asymmetry. Vestibulo-ocular reflex is intact. Palate elevates and tongue protrudes in midline. All other cranial related problems are negative except as mentioned before.Reflexes:2+ and symmetric with flexor plantar responses. She has bilateral grasp reflexes. Motor:5/5 strength with normal tone and bulk. Coordination:Finger-nose finger and [id number] testing are normal. Rapid alternating movements and fine finger movements are intact. Gait: Not tested. Sensory:Normal pinprick, vibration, light touch, proprioception. Vitals VITALS Vital Signs Date Time Temp Pulse Resp B/P (MAP) Pulse Ox O2 Delivery O2 Flow Rate FiO2 06/05/18 11:00 98.6 82 18 144/66 (92) 94 Room Air 98.6 Labs Labs Laboratory Tests Test 06/03/18 16:00 06/03/18 18:40 Urine Collection Type U cath Urine Color Yellow Urine Clarity Clear Urine pH 6.0 Urine Specific [place] 1.010 Urine Protein 30 mg/dL (NEG-TRACE) Urine Glucose (UA) Negative mg/dL (NEG) Urine Ketones (Stick) Negative mg/dL (NEG) Urine Blood Negative (NEG) Urine Nitrite Negative (NEG) Urine Bilirubin Negative (NEG) Urine Urobilinogen Dipstick 0.2 mg/dL (0.2 mg/dL) Urine Leukocyte Esterase Negative (NEG) Urine RBC 1-2 /HPF (0-2) Urine WBC 0 /HPF (0-4) Urine Squamous Epithelial Cells Few /LPF Urine Transitional Epithelial Cells Occ /LPF Urine Renal Epithelial Cells Occ /LPF Urine Bacteria 0 /HPF (0-FEW) Nasal Screen MRSA (PCR) Negative (Negative) Images Images CT scan of the head without contrast 06/03/2018 There is generalized parenchymal atrophy. Areas of decreased attenuation are seen within the periventricular and subcortical white matter of both cerebral hemispheres consistent with areas of small vessel ischemic disease. No acute parenchymal abnormality is seen. No extra-axial fluid collection is noted. No skull fracture is seen. Mild to moderate mucosal thickening is seen involving the right maxillary sinus and scattered throughout ethmoid air cells. Impression: No acute intracranial abnormality is seen. CT scan of the cervical spine without contrast 06/03/2018 Comparison study is dated 05/20/2018. Mild lateral curvature of the cervical spine is seen convex to the right. There is straightening of the normal cervical lordosis. Degenerative changes consisting of varying degrees of disc space narrowing, vertebral endplate sclerosis and minimal to mild anterior vertebral body osteophyte formation are seen throughout the cervical disc spaces. Degenerative changes are seen involving the uncovertebral and facet joints bilaterally. Moderate atherosclerotic calcification of the carotid bifurcations is noted. No fracture or subluxation of the cervical vertebrae is seen. Impression: No fracture or subluxation of the cervical vertebra is identified. Assessment/Plan Assessment/Plan Impression: Advancing Alzheimer's disease. No obvious metabolic derangement, no evidence of acute stroke, central nervous system infection, or seizures. Recommendations: It is unsafe for the patient to stay on her own in assisted living and she needs to move on to the next stage, long-term. I discussed this with the patient's daughter. No need for additional neurological studies. I would like to try her back on donepezil which was discontinued at some point since I last saw her. Thank you for letting me help with the patient's care. JOAO TITUS MD Jun 05, 2018 15:36
[2018-06-05] MEDS: HYDROcodone/APAP 5/325MG 1 TAB TABLET PO PRN (15:39)
[2018-06-05] MEDS ORDERED: IPRATRPIUM/ALBUTEROL 0.5/2.5MG 3 ML NEBU. NEB ONE (16:15)
[2018-06-05] MEDS: DONEPEZIL HCL 5 MG TABLET. PO SCH (17:06)
[2018-06-05 17:20] LABS: BASO # 0.1 x10^3/uL (0.0-0.2); BASO % 1 % (0-3); EOS # 0.2 x10^3/uL (0.0-0.7); EOS % 2 % (0-3); HEMATOCRIT 36.9 % (36.0-47.0); HEMOGLOBIN 11.9 g/dL (12.0-15.5); LYMPH # 0.8 x10^3/uL (1.0-4.8); LYMPH % 9 % (24-48); MEAN CORPUSCULAR HEMOGLOBIN 28 pg (25-35); MEAN CORPUSCULAR HGB CONC 32 g/dL (31-37); MEAN CORPUSCULAR VOLUME 86 fL (79-100); MONO # 0.6 x10^3/uL (0.0-1.1); MONO % 7 % (0-9); NEUT # 7.2 x10^3uL (1.8-7.7); NEUT % 82 % (31-73); PLATELET COUNT 269 x10^3/uL (140-400); RED BLOOD COUNT 4.28 x10^6/uL (3.50-5.40); RED CELL DISTRIBUTION WIDTH 14.4 % (11.5-14.5); WHITE BLOOD COUNT 8.8 x10^3/uL (4.0-11.0)
[2018-06-05 17:50] LABS: CALCIUM 8.9 mg/dL (8.5-10.1); CREATININE 0.9 mg/dL (0.6-1.0); GFR 72.5; POTASSIUM 3.3 mmol/L (3.5-5.1)
[2018-06-05] MEDS: ATORVASTATIN CALCIUM 10 MG TABLET. PO SCH (21:35)
[2018-06-06 03:00] VITALS: BP 166/68
[2018-06-06] MEDS: LEVOTHYROXINE 100 MCG TABLET PO SCH (05:56)
[2018-06-06 07:00] VITALS: BP 154/69
--- NOTE | 2018-06-06 07:43 | PDOC ---
PROGRESS NOTES Chief Complaint Chief Complaint Acute metabolic encephalopathy - likely 2/2 influenza, toxic from infection. Hypokalemia - will replace her potassium, check mag Alzheimers dementia - her current mental status is not consistent with baseline per SNF nursing staff. MT - IVF improved, this was likely vasomotor from her influenza she was treated for last month Fall - will obtain knee x-ray History of Present Illness History of Present Illness 82-year-old female w/PMHx Alzheimers presents to ER via EMS from her assisted living at [facility] (resident since 2016), for altered mental status. Some falls reported today by staff, but she then seemed fine, but then confusion later, and staff called EMS.. She fell from 4 feet, had some associated nausea and mental status change, although she denies any loss of consciousness. Rates her right knee pain at 7/10, it is worse with moving. CT and x-rays were negative. 06/04: Right knee Xr - mild effusion, OA. PT and OT recommend [facility] facility on discharge. 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 She has been yelling at staff overnight and this morning, refusing some care. Her daughter called from [facility] to discuss her case, states it sounds as though her confusion is getting closer to baseline. Ankle XR negative for fracture Family insistent this is not her. I will consult neurology Plan: PT/OT Ankle x-ray on left Topical mendy Needs skilled services on discharge, may need at least a psychologist or psychiatrist or neurologist manufacturing controls engineer for her memory issues Vitals Vitals Vital Signs Date Time Temp Pulse Resp B/P (MAP) Pulse Ox O2 Delivery O2 Flow Rate FiO2 06/06/18 03:00 98.3 80 18 166/68 (100) 98 Room Air 98.3 Physical Exam General: Alert, No acute distress Heart: Normal S1 Lungs: Clear Abdomen: Normal bowel sounds Extremities: No clubbing Skin: No significant lesion Labs LABS Laboratory Tests Test 06/05/18 17:00 White Blood Count 8.8 x10^3/uL (4.0-11.0) Red Blood Count 4.28 x10^6/uL (3.50-5.40) Hemoglobin 11.9 g/dL (12.0-15.5) Hematocrit 36.9 % (36.0-47.0) Mean Corpuscular Volume 86 fL (79-100) Mean Corpuscular Hemoglobin 28 pg (25-35) Mean Corpuscular Hemoglobin Concent 32 g/dL (31-37) Red Cell Distribution Width 14.4 % (11.5-14.5) Platelet Count 269 x10^3/uL (140-400) Neutrophils (%) (Auto) 82 % (31-73) Lymphocytes (%) (Auto) 9 % (24-48) Monocytes (%) (Auto) 7 % (0-9) Eosinophils (%) (Auto) 2 % (0-3) Basophils (%) (Auto) 1 % (0-3) Neutrophils # (Auto) 7.2 x10^3uL (1.8-7.7) Lymphocytes # (Auto) 0.8 x10^3/uL (1.0-4.8) Monocytes # (Auto) 0.6 x10^3/uL (0.0-1.1) Eosinophils # (Auto) 0.2 x10^3/uL (0.0-0.7) Basophils # (Auto) 0.1 x10^3/uL (0.0-0.2) Sodium Level 140 mmol/L (136-145) Potassium Level 3.3 mmol/L (3.5-5.1) Chloride Level 102 mmol/L (98-107) Carbon Dioxide Level 29 mmol/L (21-32) Anion Gap 9 (6-14) Blood Urea Nitrogen 10 mg/dL (7-20) Creatinine 0.9 mg/dL (0.6-1.0) Estimated GFR (Cockcroft-Gault) 72.5 Glucose Level 130 mg/dL (70-99) Calcium Level 8.9 mg/dL (8.5-10.1) Assessment and Plan Assessmemt and Plan Problems Medical Problems: (1) Fall at [facility] Status: Acute Comment Review of Relevant I have reviewed the following items glenna (where applicable) has been applied. Labs Laboratory Tests Test 06/05/18 17:00 White Blood Count 8.8 x10^3/uL (4.0-11.0) Red Blood Count 4.28 x10^6/uL (3.50-5.40) Hemoglobin 11.9 g/dL (12.0-15.5) Hematocrit 36.9 % (36.0-47.0) Mean Corpuscular Volume 86 fL (79-100) Mean Corpuscular Hemoglobin 28 pg (25-35) Mean Corpuscular Hemoglobin Concent 32 g/dL (31-37) Red Cell Distribution Width 14.4 % (11.5-14.5) Platelet Count 269 x10^3/uL (140-400) Neutrophils (%) (Auto) 82 % (31-73) Lymphocytes (%) (Auto) 9 % (24-48) Monocytes (%) (Auto) 7 % (0-9) Eosinophils (%) (Auto) 2 % (0-3) Basophils (%) (Auto) 1 % (0-3) Neutrophils # (Auto) 7.2 x10^3uL (1.8-7.7) Lymphocytes # (Auto) 0.8 x10^3/uL (1.0-4.8) Monocytes # (Auto) 0.6 x10^3/uL (0.0-1.1) Eosinophils # (Auto) 0.2 x10^3/uL (0.0-0.7) Basophils # (Auto) 0.1 x10^3/uL (0.0-0.2) Sodium Level 140 mmol/L (136-145) Potassium Level 3.3 mmol/L (3.5-5.1) Chloride Level 102 mmol/L (98-107) Carbon Dioxide Level 29 mmol/L (21-32) Anion Gap 9 (6-14) Blood Urea Nitrogen 10 mg/dL (7-20) Creatinine 0.9 mg/dL (0.6-1.0) Estimated GFR (Cockcroft-Gault) 72.5 Glucose Level 130 mg/dL (70-99) Calcium Level 8.9 mg/dL (8.5-10.1) Laboratory Tests Test 06/05/18 17:00 White Blood Count 8.8 x10^3/uL (4.0-11.0) Red Blood Count 4.28 x10^6/uL (3.50-5.40) Hemoglobin 11.9 g/dL (12.0-15.5) Hematocrit 36.9 % (36.0-47.0) Mean Corpuscular Volume 86 fL (79-100) Mean Corpuscular Hemoglobin 28 pg (25-35) Mean Corpuscular Hemoglobin Concent 32 g/dL (31-37) Red Cell Distribution Width 14.4 % (11.5-14.5) Platelet Count 269 x10^3/uL (140-400) Neutrophils (%) (Auto) 82 % (31-73) Lymphocytes (%) (Auto) 9 % (24-48) Monocytes (%) (Auto) 7 % (0-9) Eosinophils (%) (Auto) 2 % (0-3) Basophils (%) (Auto) 1 % (0-3) Neutrophils # (Auto) 7.2 x10^3uL (1.8-7.7) Lymphocytes # (Auto) 0.8 x10^3/uL (1.0-4.8) Monocytes # (Auto) 0.6 x10^3/uL (0.0-1.1) Eosinophils # (Auto) 0.2 x10^3/uL (0.0-0.7) Basophils # (Auto) 0.1 x10^3/uL (0.0-0.2) Sodium Level 140 mmol/L (136-145) Potassium Level 3.3 mmol/L (3.5-5.1) Chloride Level 102 mmol/L (98-107) Carbon Dioxide Level 29 mmol/L (21-32) Anion Gap 9 (6-14) Blood Urea Nitrogen 10 mg/dL (7-20) Creatinine 0.9 mg/dL (0.6-1.0) Estimated GFR (Cockcroft-Gault) 72.5 Glucose Level 130 mg/dL (70-99) Calcium Level 8.9 mg/dL (8.5-10.1) Medications Current Medications Fentanyl Citrate (Fentanyl 2ml Vial) 50 mcg 1X ONCE IV Last administered on 06/03/18at 09:00; Start 06/03/18 at 09:00; Stop 06/03/18 at 09:01; Status DC Sodium Chloride 1,000 ml @ 75 mls/hr [id number] IV Last administered on 06/05/18at 22:37; Start 06/03/18 at 16:00 Levofloxacin/ Dextrose 50 ml @ 50 mls/hr Q24H IV Last administered on 06/03/18at 16:41; Start 06/03/18 at 16:00; Stop 06/04/18 at 13:44; Status DC Acetaminophen/ Hydrocodone Bitart (Lortab 5/325) 1 tab PRN Q4HRS PRN PO MODERATE - SEVERE PAIN Last administered on 06/05/18 15:39; Start 06/03/18 at 17: 00 Acetaminophen (Tylenol) 650 mg PRN Q6HRS PRN PO HEADACHE/FEVER Last administered on 06/05/18 03:19; Start 06/03/18 at 17:00 Lactobacillus Rhamnosus (Culturelle) 1 cap BID PO Last administered on 21:35; Start 06/04/18 at 21:00 Acetaminophen (Tylenol) 325 mg PRN QID PRN PO MILD PAIN Last administered on 17:34; Start 06/04/18 at 13:15 Amlodipine Besylate (Norvasc) 10 mg DAILY PO Last administered on 06/05/18 09: 54; Start 06/04/18 at 14:00 Aspirin (Children'S Aspirin) 81 mg DAILY PO Last administered on 06/05/18 09:50 ; Start 06/04/18 at 14:00 Isosorbide Mononitrate (Imdur) 30 mg DAILY PO Last administered on 06/05/18 09: 53; Start 06/04/18 at 14:00 Levothyroxine Sodium (Synthroid) 100 mcg DAILY06 PO Last administered on 05:56; Start 06/04/18 at 14:00 Lisinopril (Prinivil) 40 mg DAILY PO Last administered on 06/05/18 09:51; Start 06/04/18 at 14:00 Calcium/Vitamin D (Oscal D 500mg/ 200uts) 1 tab DAILYWBKFT PO Last administered on 06/05/18 08:22; Start 06/04/18 at 14:00 Non-Formulary Medication (Flaxseed Oil (Flax Oil)) 1,000 mg DAILY PO ; Start 06/05/18 at 09:00; Status UNV Atorvastatin Calcium (Lipitor) 10 mg QHS PO Last administered on 06/05/18 21:35 ; Start 06/04/18 at 21:00 Diclofenac Sodium (Voltaren) 1 agata BID TP Last administered on 3/6/19at 22:37; Start 06/05/18 at 12:00 Donepezil HCl (Aricept) 5 mg DAILY PO Last administered on 06/05/18at 17:06; Start 06/05/18 at 16:30; Stop 07/04/18 at 16:29 Donepezil HCl (Aricept) 10 mg DAILY PO ; Start 07/05/18 at 09:00 Albuterol/ Ipratropium (Duoneb) 3 ml 1X ONCE NEB Last administered on at 16:15; Start 06/05/18 at 16:15; Stop 06/05/18 at 16:18; Status DC Active Scripts Active Tylenol (Acetaminophen) 325 Mg Tablet 1-2 Tab PO QID Reported Levothyroxine Sodium 100 Mcg Tablet 1 Tab PO DAILY Hydrocodone-Apap 5-325 (Hydrocodone Bit/Acetaminophen) 1 Each Tablet 1 Tab PO PRN Q6HRS PRN Pravastatin Sodium 40 Mg Tablet 40 Mg PO DAILY Lisinopril 40 Mg Tablet 40 Mg PO DAILY Isosorbide Mononitrate Er (Isosorbide Mononitrate) 30 Mg Tab.er.24h 30 Mg PO DAILY Flax Oil (Flaxseed Oil) 1,000 Mg Capsule 1,000 Mg PO DAILY Donepezil Hcl 10 Mg Tablet 1 Tab PO DAILY Calcium Magnesium + D Tablet (Calcium Carb/Mag Oxide/Vit D3) 1 Each Tablet 1 Each PO DAILY Aspirin 81 Mg Tab.chew 1 Tab PO DAILY Amlodipine Besylate 10 Mg Tablet 10 Mg PO DAILY Vitals/I & O Vital Sign - Last 24 Hours 06/05/18 06/05/18 06/05/18 06/05/18 08:20 09:51 09:53 09:54 Pulse 68 68 68 B/P (MAP) 159/60 159/60 159/60 O2 Delivery Room Air 06/05/18 06/05/18 06/05/18 06/05/18 11:00 15:00 15:05 15:39 Temp 98.6 99.3 98.6 99.3 Pulse 82 89 83 Resp 18 18 18 B/P (MAP) 144/66 (92) 174/90 (118) 163/73 (103) Pulse Ox 94 94 O2 Delivery Room Air Room Air Room Air Room Air 06/05/18 06/05/18 06/05/18 06/05/18 16:57 17:06 19:00 20:10 Temp 98.8 98.8 Pulse 79 Resp 18 B/P (MAP) 146/62 (90) Pulse Ox 93 O2 Delivery Room Air Room Air Room Air Room Air 06/05/18 06/06/18 22:58 03:00 Temp 98.8 98.3 98.8 98.3 Pulse 73 80 Resp 18 18 B/P (MAP) 149/69 (95) 166/68 (100) Pulse Ox 93 98 O2 Delivery Room Air Room Air Intake and Output 06/05/18 06/05/18 06/06/18 14:59 22:59 06:59 Intake Total 200 ml Output Total 1200 ml 750 ml Balance -1200 ml -550 ml MARIAM POWERS MD Jun 06, 2018 07:43
[2018-06-06] MEDS: CALCIUM CARB/VIT D3 500/200 TABLET. PO SCH (08:38)
[2018-06-06] MEDS: DONEPEZIL HCL 5 MG TABLET. PO SCH (09:27)
[2018-06-06] MEDS: DICLOFENAC SODIUM 1% TOPICAL GEL 100GM TUBE. TP SCH (09:27)
[2018-06-06] MEDS: ASPIRIN CHEWABLE 81 MG TABLET. PO SCH (09:27)
[2018-06-06] MEDS: LISINOPRIL 20 MG TABLET PO SCH (09:27)
[2018-06-06] MEDS: amLODIPine BESYLATE 10 MG TABLET PO SCH (09:28)
[2018-06-06] MEDS: ISOSORBIDE MONONITRATE ER 30 MG TAB.ER.24H PO SCH (09:28)
[2018-06-06] MEDS: LACTOBACILLUS RHAMNOSUS GG 1 CAPSULE. PO SCH (09:28)
[2018-06-06] MEDS: IV NORMAL SALINE 1000ML BAG 1,000 ML IV SCH (10:40)
[2018-06-06 11:00] VITALS: BP 136/67
[2018-06-06] MEDS ORDERED: HYDR-2761 PO (11:33)
[2018-06-06] MEDS ORDERED: DICL100G18 TP (11:33)
[2018-06-06] MEDS ORDERED: LACT1CAP19 PO (11:33)
--- NOTE | 2018-06-06 11:35 | SNU/HH DC ---
DISCHARGE ORDERS DISCHARGE INFORMATION: DISCHARGE DATE: Jun 06, 2018 FINAL DIAGNOSIS Problems Medical Problems: (1) Fall at [facility] Status: Acute CONDITION ON DISCHARGE: Stable CODE STATUS: Code Status: Full CARE HOME: SNF STAY <30 DAYS: Yes HOSPICE: HOSPICE: No HOSPICE EVAL & TREAT: No LTAC: ADMIT TO LTAC: No POST DISCHARGE ORDERS: ACTIVITY ORDERS: Activity as tolerated WEIGHT BEARING STATUS: No restrictions DIET AFTER DISCHARGE: Regular CHECKS AFTER DISCHARGE: CHECKS AFTER DISCHARGE: Check blood press - daily, Check blood sugar, ac/hs, Check your Temp as needed, Weigh Yourself Daily TREATMENT/EQUIPMENT ORDERS: Physical Therapy For: Evalulation/Treatment Occupational Therapy For: Evaluation/Treatment DISCHARGE MEDICATIONS: Home Meds Active Scripts Lactobacillus Rhamnosus Gg (CULTURELLE) 1 Each Cap.sprink, 1 CAP PO BID for diarrhea for 7 Days, #14 CAP Prov:MARIAM POWERS MD 06/06/18 Diclofenac Sodium (VOLTAREN) 100 Gm Gel..gram., 1 ROSE TP BID for osteoarthritis for 30 Days, #60 EACH Prov:MARIAM POWERS MD 06/06/18 Hydrocodone Bit/Acetaminophen (HYDROCODONE-APAP 5-325 ) 1 Each Tablet, 1 TAB PO PRN Q6HRS PRN for PAIN for 6 Days, #18 TAB 0 Refills Prov:MARIAM POWERS MD 06/06/18 Acetaminophen (TYLENOL) 325 Mg Tablet, 1-2 TAB PO QID, #60 TAB 2 Refills Prov:MORENITA PRICE MD 07/05/17 Reported Medications Levothyroxine Sodium (LEVOTHYROXINE SODIUM) 100 Mcg Tablet, 1 TAB PO DAILY for PER MED SHEET , #30 TAB 5 Refills 06/03/18 Pravastatin Sodium (PRAVASTATIN SODIUM) 40 Mg Tablet, 40 MG PO DAILY, TAB 08/30/16 Lisinopril (LISINOPRIL) 40 Mg Tablet, 40 MG PO DAILY for FOR HYPERTENSION, #30 TAB 0 Refills 08/30/16 Isosorbide Mononitrate (ISOSORBIDE MONONITRATE ER) 30 Mg Tab.er.24h, 30 MG PO DAILY, TAB.SR 08/30/16 Flaxseed Oil (FLAX OIL) 1,000 Mg Capsule, 1000 MG PO DAILY, CAP 08/30/16 Donepezil Hcl (DONEPEZIL HCL) 10 Mg Tablet, 1 TAB PO DAILY, #90 TAB 3 Refills 08/30/16 Calcium Carb/Mag Oxide/Vit D3 (CALCIUM MAGNESIUM + D TABLET) 1 Each Tablet, 1 EACH PO DAILY, TAB 08/30/16 Aspirin (ASPIRIN) 81 Mg Tab.chew, 1 TAB PO DAILY, #90 TAB 3 Refills 08/30/16 Amlodipine Besylate (AMLODIPINE BESYLATE) 10 Mg Tablet, 10 MG PO DAILY, TAB 08/30/16 Discontinued Reported Medications Guaifenesin (TUSSIN) 100 Mg/5 Ml Liquid, 100 MG PO, LIQUID 08/30/16 Levothyroxine Sodium (LEVOTHYROXINE SODIUM) 88 Mcg Tablet, 88 MCG PO DAILYAC for THYROID SUPPLEMENT, #30 TAB 0 Refills 08/30/16 Hydrochlorothiazide (HYDROCHLOROTHIAZIDE CAPSULE ) 12.5 Mg Capsule, 25 MG PO DAILY for DIURETIC, CAP 0 Refills 08/30/16 MARIAM POWERS MD Jun 06, 2018 11:35
--- NOTE | 2018-06-06 11:41 | PDOC3 ---
Discharge Summary Visit Information Date of Admission: Jun 03, 2018 Date of Discharge: Jun 06, 2018 Admitting Diagnosis: Fall Final Diagnosis Problems Medical Problems: (1) Fall at [facility] Status: Acute Brief Hospital Course Allergies Allergies Coded Allergies Type Severity Reaction Last Updated Verified Penicillins Allergy Intermediate 05/23/16 Yes clarithromycin Allergy Intermediate 06/04/18 Yes tetanus toxoid, adsorbed Allergy Intermediate 06/04/18 Yes Vital Signs Vital Signs Date Time Temp Pulse Resp B/P (MAP) Pulse Ox O2 Delivery O2 Flow Rate FiO2 06/06/18 09:28 65 154/69 06/06/18 08:00 Room Air 06/06/18 07:00 98.1 18 92 98.1 Lab Results Laboratory Tests Test 06/05/18 17:00 White Blood Count 8.8 x10^3/uL (4.0-11.0) Red Blood Count 4.28 x10^6/uL (3.50-5.40) Hemoglobin 11.9 g/dL (12.0-15.5) Hematocrit 36.9 % (36.0-47.0) Mean Corpuscular Volume 86 fL (79-100) Mean Corpuscular Hemoglobin 28 pg (25-35) Mean Corpuscular Hemoglobin Concent 32 g/dL (31-37) Red Cell Distribution Width 14.4 % (11.5-14.5) Platelet Count 269 x10^3/uL (140-400) Neutrophils (%) (Auto) 82 % (31-73) Lymphocytes (%) (Auto) 9 % (24-48) Monocytes (%) (Auto) 7 % (0-9) Eosinophils (%) (Auto) 2 % (0-3) Basophils (%) (Auto) 1 % (0-3) Neutrophils # (Auto) 7.2 x10^3uL (1.8-7.7) Lymphocytes # (Auto) 0.8 x10^3/uL (1.0-4.8) Monocytes # (Auto) 0.6 x10^3/uL (0.0-1.1) Eosinophils # (Auto) 0.2 x10^3/uL (0.0-0.7) Basophils # (Auto) 0.1 x10^3/uL (0.0-0.2) Sodium Level 140 mmol/L (136-145) Potassium Level 3.3 mmol/L (3.5-5.1) Chloride Level 102 mmol/L (98-107) Carbon Dioxide Level 29 mmol/L (21-32) Anion Gap 9 (6-14) Blood Urea Nitrogen 10 mg/dL (7-20) Creatinine 0.9 mg/dL (0.6-1.0) Estimated GFR (Cockcroft-Gault) 72.5 Glucose Level 130 mg/dL (70-99) Calcium Level 8.9 mg/dL (8.5-10.1) Laboratory Tests Test 06/05/18 17:00 White Blood Count 8.8 x10^3/uL (4.0-11.0) Red Blood Count 4.28 x10^6/uL (3.50-5.40) Hemoglobin 11.9 g/dL (12.0-15.5) Hematocrit 36.9 % (36.0-47.0) Mean Corpuscular Volume 86 fL (79-100) Mean Corpuscular Hemoglobin 28 pg (25-35) Mean Corpuscular Hemoglobin Concent 32 g/dL (31-37) Red Cell Distribution Width 14.4 % (11.5-14.5) Platelet Count 269 x10^3/uL (140-400) Neutrophils (%) (Auto) 82 % (31-73) Lymphocytes (%) (Auto) 9 % (24-48) Monocytes (%) (Auto) 7 % (0-9) Eosinophils (%) (Auto) 2 % (0-3) Basophils (%) (Auto) 1 % (0-3) Neutrophils # (Auto) 7.2 x10^3uL (1.8-7.7) Lymphocytes # (Auto) 0.8 x10^3/uL (1.0-4.8) Monocytes # (Auto) 0.6 x10^3/uL (0.0-1.1) Eosinophils # (Auto) 0.2 x10^3/uL (0.0-0.7) Basophils # (Auto) 0.1 x10^3/uL (0.0-0.2) Sodium Level 140 mmol/L (136-145) Potassium Level 3.3 mmol/L (3.5-5.1) Chloride Level 102 mmol/L (98-107) Carbon Dioxide Level 29 mmol/L (21-32) Anion Gap 9 (6-14) Blood Urea Nitrogen 10 mg/dL (7-20) Creatinine 0.9 mg/dL (0.6-1.0) Estimated GFR (Cockcroft-Gault) 72.5 Glucose Level 130 mg/dL (70-99) Calcium Level 8.9 mg/dL (8.5-10.1) Brief Hospital Course Ms. Han is an 82-year-old female w/PMHx Alzheimers presents to ER via EMS from her assisted living at [facility] (resident since 2016), for altered mental status. Some falls reported today by staff, but she then seemed fine, but then confusion later, and staff called EMS.. She fell from 4 feet, had some associated nausea and mental status change, although she denies any loss of consciousness. Rates her right knee pain at 7/10, it is worse with moving. CT and x-rays were negative. 06/04: Right knee Xr - mild effusion, OA. PT and OT recommend intermediate facility on discharge. Last night c/o severe left ankle pain when working with therapy and [employer]. She has been yelling at staff overnight and this morning, refusing some care. Her daughter called from [place] to discuss her case, states it sounds as though her confusion is getting closer to baseline. Ankle XR negative for fracture Family insistent this is not her. I consulted neurology and we have discontinued her carbamazepine and restarted her aricept at low dose with some mental clearing, though she clearly has a dementia and is not safe to be home alone. Acute metabolic encephalopathy - likely 2/2 influenza, toxic from infection. Hypokalemia - will replace her potassium, check mag Alzheimers dementia - her current mental status is not consistent with baseline per SNF nursing staff. MT - IVF improved, this was likely vasomotor from her influenza she was treated for last month Fall - has polyarthralgias and arthritis, no fractures, improved with voltaren gel Plan: PT/OT Topical voltaren Needs skilled services on discharge, may need at least a psychologist or psychiatrist or neurologist distribution tech for her memory issues Greater than 30 minutes spent on discharge including coordination with specialists and family Discharge Information Condition at Discharge: Improved Follow Up: Weeks (2) Disposition/Orders: D/C to Another Facility ([facility]) Scheduled Acetaminophen (Tylenol) 325 Mg Tablet, 1-2 TAB PO QID, #60 Ref 2 Prescribed by: MORENITA SANCHES MD on 07/05/17 153 Last Action: Continued on 06/04/181302 by MARIAM POWERS MD Amlodipine Besylate (Amlodipine Besylate) 10 Mg Tablet, 10 MG PO DAILY, ( Reported) Entered as Reported by: YSABEL JEAN on 08/30/162303 Last Action: Continued on 06/04/181302 by MARIAM POWERS MD Aspirin (Aspirin) 81 Mg Tab.chew, 1 TAB PO DAILY, #90 Ref 3 (Reported) Entered as Reported by: YSABEL JEAN on 08/30/162303 Last Action: Continued on 06/04/181302 by MARIAM POWERS MD Calcium Carb/Mag Oxide/Vit D3 (Calcium Magnesium + D Tablet) 1 Each Tablet, 1 EACH PO DAILY, (Reported) Entered as Reported by: YSABEL JEAN on 08/30/162303 Last Action: Converted on 06/04/181302 by MARIAM POWERS MD Diclofenac Sodium (Voltaren) 100 Gm Gel..gram., 1 ROSE TP BID for osteoarthritis for 30 Days, #60 Prescribed by: MARIAM POWERS MD on 06/06/181132 Donepezil Hcl (Donepezil Hcl) 10 Mg Tablet, 1 TAB PO DAILY, #90 Ref 3 (Reported) Entered as Reported by: YSABEL JEAN on 08/30/162303 Last Action: HELD on 06/04/181301 by MARIAM POWERS MD Flaxseed Oil (Flax Oil) 1,000 Mg Capsule, 1,000 MG PO DAILY, (Reported) Entered as Reported by: YSABEL JEAN on 08/30/162303 Last Action: Converted on 06/04/181302 by MARIAM POWERS MD Isosorbide Mononitrate (Isosorbide Mononitrate Er) 30 Mg Tab.er.24h, 30 MG PO DAILY, (Reported) Entered as Reported by: YSABEL JEAN on 08/30/162303 Last Action: Continued on 06/04/181302 by MARIAM POWERS MD Lactobacillus Rhamnosus Gg (Culturelle) 1 Each Cap.sprink, 1 CAP PO BID for diarrhea for 7 Days, #14 Prescribed by: MARIAM POWERS MD on 06/06/181132 Levothyroxine Sodium (Levothyroxine Sodium) 100 Mcg Tablet, 1 TAB PO DAILY for PER MED SHEET , #30 Ref 5 (Reported) Entered as Reported by: GYPSY SLOAN on 06/03/181816 Last Action: Continued on 06/04/181302 by MARIAM POWERS MD Lisinopril (Lisinopril) 40 Mg Tablet, 40 MG PO DAILY for FOR HYPERTENSION, #30 Ref 0 (Reported) Entered as Reported by: YSABEL JEAN on 08/30/162303 Last Action: Continued on 06/04/181302 by MARIAM POWERS MD Pravastatin Sodium (Pravastatin Sodium) 40 Mg Tablet, 40 MG PO DAILY, (Reported) Entered as Reported by: YSABEL JEAN on 08/30/162303 Last Action: Converted on 06/04/181302 by MARIAM POWERS MD Scheduled PRN Hydrocodone Bit/Acetaminophen (Hydrocodone-Apap 5-325 ) 1 Each Tablet, 1 TAB PO PRN Q6HRS PRN for PAIN for 6 Days, #18 Ref 0 Prescribed by: MARIAM POWERS MD on 06/06/181132 Discontinued Medications Guaifenesin (Tussin) 100 Mg/5 Ml Liquid, 100 MG PO, (Reported) Entered as Reported by: YSABEL JEAN on 08/30/162303 Last Action: Discontinued on 06/03/181816 by GYPSY SLOAN Hydrochlorothiazide (Hydrochlorothiazide Capsule ) 12.5 Mg Capsule, 25 MG PO DAILY for DIURETIC, Ref 0 (Reported) Entered as Reported by: YSABEL JEAN on 08/30/162303 Last Action: Discontinued on 06/03/181816 by GYPSY SLOAN Levothyroxine Sodium (Levothyroxine Sodium) 88 Mcg Tablet, 88 MCG PO DAILYAC for THYROID SUPPLEMENT, #30 Ref 0 (Reported) Entered as Reported by: YSABEL JEAN on 08/30/162303 Last Action: Discontinued on 06/03/181816 by MARIAM STOUT MD Jun 06, 2018 11:40
--- NOTE | 2018-06-06 14:29 | PDOC ---
PROGRESS NOTES Assessment Problems Medical Problems: (1) Fall at detention Status: Acute Advancing Alzheimer's disease. No obvious metabolic derangement, no evidence of acute stroke, central nervous system infection, or seizures. Plan It is unsafe for the patient to stay on her own in assisted living and she needs to move on to the next stage, detention. I discussed this with the patient's daughter. Donepezil resumed Follow-up with me in 6 weeks Subjective No complaints Objective Vital Signs Date Time Temp Pulse Resp B/P (MAP) Pulse Ox O2 Delivery O2 Flow Rate FiO2 06/06/18 11:00 98.4 74 16 136/67 (90) 95 Room Air 98.4 Intake and Output 06/06/18 07:00 Intake Total 200 ml Output Total 1950 ml Balance -1750 ml Intake Oral 200 ml Output Urine Total 1950 ml PHYSICAL EXAM Alert. Oriented to person, "off Parallel," "the 24th." PERRL. EOMI. CN: no focal findings. Muscle tone: normal. Muscle strength: 5/5 DTR: 2+ Bilateral grasp reflexes Plantar reflex: Flexor Gait: not examined in bed. Sensory exam: no abnormal findings. No cerebellar signs elicited. Review of Relevant I have reviewed the following items glenna (where applicable) has been applied. Labs Laboratory Tests Test 06/05/18 17:00 White Blood Count 8.8 x10^3/uL (4.0-11.0) Red Blood Count 4.28 x10^6/uL (3.50-5.40) Hemoglobin 11.9 g/dL (12.0-15.5) Hematocrit 36.9 % (36.0-47.0) Mean Corpuscular Volume 86 fL (79-100) Mean Corpuscular Hemoglobin 28 pg (25-35) Mean Corpuscular Hemoglobin Concent 32 g/dL (31-37) Red Cell Distribution Width 14.4 % (11.5-14.5) Platelet Count 269 x10^3/uL (140-400) Neutrophils (%) (Auto) 82 % (31-73) Lymphocytes (%) (Auto) 9 % (24-48) Monocytes (%) (Auto) 7 % (0-9) Eosinophils (%) (Auto) 2 % (0-3) Basophils (%) (Auto) 1 % (0-3) Neutrophils # (Auto) 7.2 x10^3uL (1.8-7.7) Lymphocytes # (Auto) 0.8 x10^3/uL (1.0-4.8) Monocytes # (Auto) 0.6 x10^3/uL (0.0-1.1) Eosinophils # (Auto) 0.2 x10^3/uL (0.0-0.7) Basophils # (Auto) 0.1 x10^3/uL (0.0-0.2) Sodium Level 140 mmol/L (136-145) Potassium Level 3.3 mmol/L (3.5-5.1) Chloride Level 102 mmol/L (98-107) Carbon Dioxide Level 29 mmol/L (21-32) Anion Gap 9 (6-14) Blood Urea Nitrogen 10 mg/dL (7-20) Creatinine 0.9 mg/dL (0.6-1.0) Estimated GFR (Cockcroft-Gault) 72.5 Glucose Level 130 mg/dL (70-99) Calcium Level 8.9 mg/dL (8.5-10.1) Laboratory Tests Test 06/05/18 17:00 White Blood Count 8.8 x10^3/uL (4.0-11.0) Red Blood Count 4.28 x10^6/uL (3.50-5.40) Hemoglobin 11.9 g/dL (12.0-15.5) Hematocrit 36.9 % (36.0-47.0) Mean Corpuscular Volume 86 fL (79-100) Mean Corpuscular Hemoglobin 28 pg (25-35) Mean Corpuscular Hemoglobin Concent 32 g/dL (31-37) Red Cell Distribution Width 14.4 % (11.5-14.5) Platelet Count 269 x10^3/uL (140-400) Neutrophils (%) (Auto) 82 % (31-73) Lymphocytes (%) (Auto) 9 % (24-48) Monocytes (%) (Auto) 7 % (0-9) Eosinophils (%) (Auto) 2 % (0-3) Basophils (%) (Auto) 1 % (0-3) Neutrophils # (Auto) 7.2 x10^3uL (1.8-7.7) Lymphocytes # (Auto) 0.8 x10^3/uL (1.0-4.8) Monocytes # (Auto) 0.6 x10^3/uL (0.0-1.1) Eosinophils # (Auto) 0.2 x10^3/uL (0.0-0.7) Basophils # (Auto) 0.1 x10^3/uL (0.0-0.2) Sodium Level 140 mmol/L (136-145) Potassium Level 3.3 mmol/L (3.5-5.1) Chloride Level 102 mmol/L (98-107) Carbon Dioxide Level 29 mmol/L (21-32) Anion Gap 9 (6-14) Blood Urea Nitrogen 10 mg/dL (7-20) Creatinine 0.9 mg/dL (0.6-1.0) Estimated GFR (Cockcroft-Gault) 72.5 Glucose Level 130 mg/dL (70-99) Calcium Level 8.9 mg/dL (8.5-10.1) Medications Current Medications Fentanyl Citrate (Fentanyl 2ml Vial) 50 mcg 1X ONCE IV Last administered on 09:00; Start 06/03/18 at 09:00; Stop 06/03/18 at 09:01; Status DC Sodium Chloride 1,000 ml @ 75 mls/hr [id number] IV Last administered on 06/05/18at 22:37; Start 06/03/18 at 16:00 Levofloxacin/ Dextrose 50 ml @ 50 mls/hr Q24H IV Last administered on 06/03/18at 16:41; Start 06/03/18 at 16:00; Stop 06/04/18 at 13:44; Status DC Acetaminophen/ Hydrocodone Bitart (Lortab 5/325) 1 tab PRN Q4HRS PRN PO MODERATE - SEVERE PAIN Last administered on 06/05/18at 15:39; Start 06/03/18 at 17: 00 Acetaminophen (Tylenol) 650 mg PRN Q6HRS PRN PO HEADACHE/FEVER Last administered on 06/05/18 03:19; Start 06/03/18 at 17:00 Lactobacillus Rhamnosus (Culturelle) 1 cap BID PO Last administered on at 09:28; Start 06/04/18 at 21:00 Acetaminophen (Tylenol) 325 mg PRN QID PRN PO MILD PAIN Last administered on 17:34; Start 06/04/18 at 13:15 Amlodipine Besylate (Norvasc) 10 mg DAILY PO Last administered on 06/06/18 09: 28; Start 06/04/18 at 14:00 Aspirin (Children'S Aspirin) 81 mg DAILY PO Last administered on 06/06/18 09:27 ; Start 06/04/18 at 14:00 Isosorbide Mononitrate (Imdur) 30 mg DAILY PO Last administered on 06/06/18 09: 28; Start 06/04/18 at 14:00 Levothyroxine Sodium (Synthroid) 100 mcg DAILY06 PO Last administered on 05:56; Start 06/04/18 at 14:00 Lisinopril (Prinivil) 40 mg DAILY PO Last administered on 06/06/18 09:27; Start 06/04/18 at 14:00 Calcium/Vitamin D (Oscal D 500mg/ 200uts) 1 tab [id number] PO Last administered on 06/06/18 08:38; Start 06/04/18 at 14:00 Non-Formulary Medication (Flaxseed Oil (Flax Oil)) 1,000 mg DAILY PO ; Start 06/05/18 at 09:00; Status UNV Atorvastatin Calcium (Lipitor) 10 mg QHS PO Last administered on 06/05/18 21:35 ; Start 06/04/18 at 21:00 Diclofenac Sodium (Voltaren) 1 stu BID TP Last administered on 06/06/18 09:27; Start 06/05/18 at 12:00 Donepezil HCl (Aricept) 5 mg DAILY PO Last administered on 06/06/18 09:27; Start 06/05/18 at 16:30; Stop 07/04/18 at 16:29 Donepezil HCl (Aricept) 10 mg DAILY PO ; Start 07/05/18 at 09:00 Albuterol/ Ipratropium (Duoneb) 3 ml 1X ONCE NEB Last administered on 16:15; Start 06/05/18 at 16:15; Stop 06/05/18 at 16:18; Status DC Active Scripts Active Culturelle (Lactobacillus Rhamnosus Gg) 1 Each Cap.sprink 1 Cap PO BID 7 Days Voltaren (Diclofenac Sodium) 100 Gm Gel..gram. 1 Stu TP BID 30 Days Hydrocodone-Apap 5-325 (Hydrocodone Bit/Acetaminophen) 1 Each Tablet 1 Tab PO PRN Q6HRS PRN 6 Days Tylenol (Acetaminophen) 325 Mg Tablet 1-2 Tab PO QID Reported Levothyroxine Sodium 100 Mcg Tablet 1 Tab PO DAILY Pravastatin Sodium 40 Mg Tablet 40 Mg PO DAILY Lisinopril 40 Mg Tablet 40 Mg PO DAILY Isosorbide Mononitrate Er (Isosorbide Mononitrate) 30 Mg Tab.er.24h 30 Mg PO DAILY Flax Oil (Flaxseed Oil) 1,000 Mg Capsule 1,000 Mg PO DAILY Donepezil Hcl 10 Mg Tablet 1 Tab PO DAILY Calcium Magnesium + D Tablet (Calcium Carb/Mag Oxide/Vit D3) 1 Each Tablet 1 Each PO DAILY Aspirin 81 Mg Tab.chew 1 Tab PO DAILY Amlodipine Besylate 10 Mg Tablet 10 Mg PO DAILY Vitals/I & O Vital Sign - Last 24 Hours 06/05/18 06/05/18 06/05/18 06/05/18 15:00 15:05 15:39 16:57 Temp 99.3 99.3 Pulse 89 83 Resp 18 18 B/P (MAP) 174/90 (118) 163/73 (103) Pulse Ox 94 O2 Delivery Room Air Room Air Room Air Room Air 06/05/18 06/05/18 06/05/18 06/05/18 17:06 19:00 20:10 22:58 Temp 98.8 98.8 98.8 98.8 Pulse 79 73 Resp 18 18 B/P (MAP) 146/62 (90) 149/69 (95) Pulse Ox 93 93 O2 Delivery Room Air Room Air Room Air Room Air 06/06/18 06/06/18 06/06/18 06/06/18 03:00 07:00 08:00 09:27 Temp 98.3 98.1 98.3 98.1 Pulse 80 65 65 Resp 18 18 B/P (MAP) 166/68 (100) 154/69 (97) 154/69 Pulse Ox 98 92 O2 Delivery Room Air Room Air Room Air 06/06/18 06/06/18 06/06/18 09:28 09:28 11:00 Temp 98.4 98.4 Pulse 65 65 74 Resp 16 B/P (MAP) 154/69 154/69 136/67 (90) Pulse Ox 95 O2 Delivery Room Air Intake and Output 06/05/18 06/05/18 06/06/18 15:00 23:00 07:00 Intake Total 200 ml Output Total 1200 ml 750 ml Balance -1200 ml -550 ml JOAO TITUS MD Jun 06, 2018 14:29
[2018-06-06 15:00] VITALS: BP 161/72
[2018-07-05] MEDS ORDERED: DONEPEZIL HCL 10 MG TABLET. PO SCH (09:00)
== END 2018-06-06 18:15 | DRG 682 ==
LOC: ER 08:18 → 4 NORTH 13:20
PROVIDERS: ADMIT Internal Medicine; ATTEND Internal Medicine
DX: N17.0 Acute kidney failure with tubular necrosis (principal); G93.41 Metabolic encephalopathy; E87.2 Acidosis; M25.551 Pain in right hip; E87.6 Hypokalemia; I10 Essential (primary) hypertension; E03.9 Hypothyroidism, unspecified; E78.00 Pure hypercholesterolemia, unspecified; E78.5 Hyperlipidemia, unspecified; F02.80 Dementia in other diseases classified elsewhere, unspecified severity, without behavioral disturbance, psychotic disturbance, mood disturbance, and anxiety; G30.9 Alzheimer's disease, unspecified; M11.252 Other chondrocalcinosis, left hip; M11.251 Other chondrocalcinosis, right hip; M19.90 Unspecified osteoarthritis, unspecified site; M47.816 Spondylosis without myelopathy or radiculopathy, lumbar region; M51.36 Other intervertebral disc degeneration, lumbar region; M85.80 Other specified disorders of bone density and structure, unspecified site; W06.XXXA Fall from bed, initial encounter; Z82.49 Family history of ischemic heart disease and other diseases of the circulatory system; Z85.850 Personal history of malignant neoplasm of thyroid; Z90.49 Acquired absence of other specified parts of digestive tract; Z90.710 Acquired absence of both cervix and uterus; Z87.440 Personal history of urinary (tract) infections; Y93.89 Activity, other specified; Y92.122 Bedroom in nursing home as the place of occurrence of the external cause; Y99.8 Other external cause status; Z88.0 Allergy status to penicillin
CPT/HCPCS: 36415; 70450; 72125; 72192; 73521; 73560; 73610; 80048; 80053; 81001; 85007; 85025; 85610; 85730; 87641; 94640; 96374; J1956; J3010; J7030; J7620; 97116; 97530; 97535; 99285-25

== ENCOUNTER 2018-09-24 13:02 | Emergency (ER) | payer MEDICARE, OTHER ==
[~2018-09-24] VITALS: Ht 162.6 cm; Wt 81.6 kg
[~2018-09-24 13:02] MED LIST changes: +DICL100G18 TP; +LACT1CAP19 PO; +LEVO100T5 PO
--- NOTE | 2018-09-24 13:30 | EKG ---
[facility] [address] [place] [address] Test Date: 2018-09-24 Test Time: 13:25:01 Pat Name: NIMCO KELLER Department: Room: Gender: F [employer] State Tester: : 1935 Requested By: MITA ALONSO Order Number: [id number] Reading MD: Measurements Intervals [place] Rate: 67 P: 72 [place]: 182 QRS: -54 QRSD: 130 T: 28 QT: 442 QTc: 470 Interpretive Statements SINUS RHYTHM INTERPOLATED ATRIAL PREMATURE COMPLEX(ES) ABNORMAL LEFT AXIS DEVIATION LEFT ANTERIOR FASCICULAR BLOCK NON SPECIFIC INTRAVENTRICULAR BLOCK ABNORMAL ECG RI6.01 No previous ECG available for comparison
--- NOTE | 2018-09-24 13:51 | RAD ---
Examination: PORTABLE CHEST 1V History: Altered mental status Comparison/Correlation: 05/20/2018 AP view of the chest Findings: Portable upright frontal view of the chest was obtained. Heart size is within upper limits of normal. Limited pulmonary inflation is evident. Subtle opacity at the left lateral lung base at the costophrenic angle may artifactual and related to overlapping anatomic shadows. No conclusive infiltrate or definite pleural effusion. Right upper quadrant surgical clips are present. Impression: No definite acute process. Electronically signed by: Todd Ibrahim MD (09/24/2018 1:48 PM) [id number]
[2018-09-24 13:55] LABS: BASO # 0.1 x10^3/uL (0.0-0.2); BASO % 1 % (0-3); EOS # 0.2 x10^3/uL (0.0-0.7); EOS % 4 % (0-3); HEMATOCRIT 37.4 % (36.0-47.0); HEMOGLOBIN 12.4 g/dL (12.0-15.5); LYMPH # 0.9 x10^3/uL (1.0-4.8); LYMPH % 15 % (24-48); MEAN CORPUSCULAR HEMOGLOBIN 30 pg (25-35); MEAN CORPUSCULAR HGB CONC 33 g/dL (31-37); MEAN CORPUSCULAR VOLUME 90 fL (79-100); MONO # 0.4 x10^3/uL (0.0-1.1); MONO % 7 % (0-9); NEUT # 4.5 x10^3uL (1.8-7.7); NEUT % 73 % (31-73); PLATELET COUNT 242 x10^3/uL (140-400); RED BLOOD COUNT 4.16 x10^6/uL (3.50-5.40); RED CELL DISTRIBUTION WIDTH 15.3 % (11.5-14.5); WHITE BLOOD COUNT 6.1 x10^3/uL (4.0-11.0)
[2018-09-24 13:57] LABS: BILIRUBIN,URINE NEGATIVE (NEG); CLARITY,URINE CLOUDY; COLOR,URINE YELLOW; NITRITE,URINE NEGATIVE (NEG); PROTEIN,URINE 30 mg/dL (NEG-TRACE)
--- NOTE | 2018-09-24 14:21 | PHYS DOC ---
Past Medical History Past Medical History: Cancer, Dementia, High Cholesterol, Hypertension, Hypothyroid Additional Past Medical Histor: alzheimers, malnutrition Past Surgical History: Appendectomy, Cancer Surgery, Hysterectomy Alcohol Use: None Drug Use: None Adult General Chief Complaint Chief Complaint: [facility] HPI Patient is a 82 year old female who presents with here from [facility] which states that they went in to check on patient and she seemed hard to wake up and she was satting at 71% on room air. They called EMS and when EMS arrived EMS states that they fix the oxygen probe on the patient's finger and her O2 sats were in the 90s and the patient was at baseline according to the [facility]. [facility] still wanted the patient to be sent over for evaluation. Patient is able to tell us her name and her birthday but she does not know where she is at and does not know the day in does not answer questions appropriately otherwise. Review of Systems Review of Systems Constitutional: Denies fever or chills [] Eyes: Denies change in visual acuity, redness, or eye pain [] HENT: Denies nasal congestion or sore throat [] Respiratory: Denies cough or shortness of breath [] Cardiovascular: No additional information not addressed in HPI [] GI: Denies abdominal pain, nausea, vomiting, bloody stools or diarrhea [] : Denies dysuria or hematuria [] Musculoskeletal: Denies back pain or joint pain [] Integument: Denies rash or skin lesions [] Neurologic: AMS. Denies headache, focal weakness or sensory changes [] Endocrine: Denies polyuria or polydipsia [] All other systems were reviewed and found to be within normal limits, except as documented in this note. Allergies Allergies Allergies Coded Allergies Type Severity Reaction Last Updated Verified Penicillins Allergy Intermediate 05/23/16 Yes clarithromycin Allergy Intermediate 06/04/18 Yes tetanus toxoid, adsorbed Allergy Intermediate 06/04/18 Yes Physical Exam Physical Exam Constitutional: Well developed, well nourished, no acute distress, non-toxic appearance. [] HENT: Normocephalic, atraumatic, bilateral external ears normal, oropharynx moist, no oral exudates, nose normal. [] Eyes: PERRLA, EOMI, conjunctiva normal, no discharge. [] Neck: Normal range of motion, no tenderness, supple, no stridor. [] Cardiovascular:Heart rate regular rhythm, no murmur [] Lungs & Thorax: Bilateral breath sounds clear to auscultation [] Abdomen: Bowel sounds normal, soft, no tenderness, no masses, no pulsatile masses. [] Skin: Warm, dry, no erythema, no rash. [] Back: No tenderness, no CVA tenderness. [] Extremities: No tenderness, no cyanosis, no clubbing, ROM intact, no edema. [] Neurologic: Alert and oriented X 2, normal motor function, normal sensory function, no focal deficits noted. [] Psychologic: Affect normal, judgement normal, mood normal. [] Current Patient Data Vital Signs Vital Signs Date Time Temp Pulse Resp B/P (MAP) Pulse Ox O2 Delivery O2 Flow Rate FiO2 09/24/18 14:54 58 20 164/69 (100) 96 Room Air 09/24/18 13:02 97.7 97.7 Lab Values Laboratory Tests Test 09/24/18 13:40 09/24/18 13:45 White Blood Count 6.1 x10^3/uL (4.0-11.0) Red Blood Count 4.16 x10^6/uL (3.50-5.40) Hemoglobin 12.4 g/dL (12.0-15.5) Hematocrit 37.4 % (36.0-47.0) Mean Corpuscular Volume 90 fL (79-100) Mean Corpuscular Hemoglobin 30 pg (25-35) Mean Corpuscular Hemoglobin Concent 33 g/dL (31-37) Red Cell Distribution Width 15.3 % (11.5-14.5) H Platelet Count 242 x10^3/uL (140-400) Neutrophils (%) (Auto) 73 % (31-73) Lymphocytes (%) (Auto) 15 % (24-48) L Monocytes (%) (Auto) 7 % (0-9) Eosinophils (%) (Auto) 4 % (0-3) H Basophils (%) (Auto) 1 % (0-3) Neutrophils # (Auto) 4.5 x10^3uL (1.8-7.7) Lymphocytes # (Auto) 0.9 x10^3/uL (1.0-4.8) L Monocytes # (Auto) 0.4 x10^3/uL (0.0-1.1) Eosinophils # (Auto) 0.2 x10^3/uL (0.0-0.7) Basophils # (Auto) 0.1 x10^3/uL (0.0-0.2) Sodium Level 142 mmol/L (136-145) Potassium Level 3.6 mmol/L (3.5-5.1) Chloride Level 104 mmol/L (98-107) Carbon Dioxide Level 28 mmol/L (21-32) Anion Gap 10 (6-14) Blood Urea Nitrogen 18 mg/dL (7-20) Creatinine 0.9 mg/dL (0.6-1.0) Estimated GFR (Cockcroft-Gault) 72.5 BUN/Creatinine Ratio 20 (6-20) Glucose Level 95 mg/dL (70-99) Calcium Level 9.5 mg/dL (8.5-10.1) Total Bilirubin Pending Aspartate Amino Transferase (AST) Pending Alanine Aminotransferase (ALT) Pending Alkaline Phosphatase Pending Troponin I Quantitative < 0.017 ng/mL (0.000-0.055) Total Protein Pending Albumin Pending Albumin/Globulin Ratio Pending Urine Collection Type U cath Urine Color Yellow Urine Clarity Cloudy Urine pH 6.0 Urine Specific [place] 1.020 Urine Protein 30 mg/dL (NEG-TRACE) Urine Glucose (UA) Negative mg/dL (NEG) Urine Ketones (Stick) Trace mg/dL (NEG) Urine Blood Negative (NEG) Urine Nitrite Negative (NEG) Urine Bilirubin Negative (NEG) Urine Urobilinogen Dipstick 1.0 mg/dL (0.2 mg/dL) Urine Leukocyte Esterase Moderate (NEG) Urine RBC 1-2 /HPF (0-2) Urine WBC 5-10 /HPF (0-4) Urine Squamous Epithelial Cells None /LPF Urine Bacteria Many /HPF (0-FEW) Laboratory Tests 09/24/18 13:40 Laboratory Tests 09/24/18 13:40 EKG EKG Sinus Rhythm and no STEMI.[] Interpretation Time: [address] Santana Radiology/Procedures Radiology/Procedures [] Impressions: [facility] [address] [place], [place] [id number] IMAGING REPORT Signed PATIENT: NIMCO KELLER ACCOUNT: [id number] : 1935 LOCATION: ER AGE: 82 SEX: F EXAM STATUS: PRE ER ORD. PHYSICIAN: MITA ALONSO APRN REASON: ams PROCEDURE: PORTABLE CHEST 1V Examination: PORTABLE CHEST 1V History: Altered mental status Comparison/Correlation: 05/20/2018 AP view of the chest Findings: Portable upright frontal view of the chest was obtained. Heart size is within upper limits of normal. Limited pulmonary inflation is evident. Subtle opacity at the left lateral lung base at the costophrenic angle may artifactual and related to overlapping anatomic shadows. No conclusive infiltrate or definite pleural effusion. Right upper quadrant surgical clips are present. Impression: No definite acute process. Electronically signed by: Todd Meyer MD (09/24/2018 1:48 PM) [id number] DICTATED and SIGNED BY: TODD MEYER MD DATE: 09/24/18 1348 [facility] [address] [place], [place] [id number] IMAGING REPORT Signed PATIENT: NIMCO KELLER ACCOUNT: [id number] : 1935 LOCATION: ER AGE: 82 SEX: F EXAM STATUS: REG ER ORD. PHYSICIAN: MITA ALONSO APRN REASON: AMS PROCEDURE: CT HEAD WO CONTRAST Examination: CT HEAD WO CONTRAST History: Altered mental status Comparison/Correlation: 06/03/2018 CT head and cervical spine without contrast Findings: Axial images of the head were obtained without contrast. Motion limits evaluation despite repeat scanning at the time the patient's visit to the CT department. Atrophy is present. Chronic ischemic changes white matter is noted. No midline shift or mass effect. Ventricles are normal size. Globes and optic nerves are unremarkable. Bony structures are unremarkable. Minimal opacification of the right external auditory canal. Impression: No intracranial hemorrhage. Limited exam. PQRS Compliance Statement: One or more of the following individualized dose reduction techniques were utilized for this examination: 1. Automated exposure control 2. Adjustment of the mA and/or kV according to patient size 3. Use of iterative reconstruction technique Electronically signed by: Todd Meyer MD (09/24/2018 2:38 PM) [id number] DICTATED and SIGNED BY: TODD MEYER MD DATE: 09/24/18 1438 Course & Med Decision Making Course & Med Decision Making Patient is a 82 year old female who presents with here from [facility] which states that they went in to check on patient and she seemed hard to wake up and she was satting at 71% on room air. They called EMS and when EMS arrived EMS states that they fix the oxygen probe on the patient's finger and her O2 sats were in the 90s and the patient was at baseline according to the [facility]. [facility] still wanted the patient to be sent over for evaluation. Lola blood is able to tell us her name and her birthday but she does not know where she is at and does not know the day in does not answer questions appropriately otherwise. Patient is alert and does not follow commands appropriately but is very pleasant. For example when the patient is asked where she is she begins reading the nurses name on her badge and answers every question with "yeah" or speaks with jumbled words that can not be made out to understand. Patient has history dementia, Alzheimer's, weakness, falls, hypothyroidism, hypertension. Patient has 1-2+ pitting edema in her lower extremities bilaterally. Abdomen is soft and nontender. Lungs are clear to auscultation all lobes. PERRLA. Vital signs are 97.7, 100% on room air, 60 heart rate, blood pressure is 171/74. EKG shows Sinus Rhythm and no Stemi. Unable to do a correct NIH scale due to the patients advanced Dementia, as patient is unable to follow commands. Chest x-ray and CT head have no acute findings. Troponin is normal. Blood work is unremarkable. Urinalysis shows leuks and bacteria. I will treat the patient for urinary tract infection with Macrobid. Patient will need to follow-up with primary care provider to make sure urinary tract infection is gone. Urine has been sent off for a culture. Dragon Disclaimer Dragon Disclaimer This electronic medical record was generated, in whole or in part, using a voice recognition dictation system. Departure Departure Impression: Primary Impression: Urinary tract infection Disposition: 01 HOME, SELF-CARE Condition: STABLE Referrals: UNKNOWN PCP NAME (PCP) Patient Instructions: Urinary Tract Infection Additional Instructions: Follow-up with primary care provider in the next week to make sure that the urinary tract infection is gone. See primary care provider sooner or return to emergency room if symptoms worsen or he develops a fever, nausea or vomiting. Scripts Nitrofurantoin Monohyd/M-Cryst (MACROBID 100 MG CAPSULE) 100 Mg Capsule 1 CAP PO BID for 7 Days, #14 CAP Prov: MITA ALONSO APRN 09/24/18 Problem Qualifiers Primary Impression: Urinary tract infection Urinary tract infection type: site unspecified Hematuria presence: without hematuria Qualified Codes: N39.0 - Urinary tract infection, site not specified MITA ALONSO APRN Sep 24, 2018 14:21
--- NOTE | 2018-09-24 14:41 | RAD ---
Examination: CT HEAD WO CONTRAST History: Altered mental status Comparison/Correlation: 06/03/2018 CT head and cervical spine without contrast Findings: Axial images of the head were obtained without contrast. Motion limits evaluation despite repeat scanning at the time the patient's visit to the CT department. Atrophy is present. Chronic ischemic changes white matter is noted. No midline shift or mass effect. Ventricles are normal size. Globes and optic nerves are unremarkable. Bony structures are unremarkable. Minimal opacification of the right external auditory canal. Impression: No intracranial hemorrhage. Limited exam. PQRS Compliance Statement: One or more of the following individualized dose reduction techniques were utilized for this examination: 1. Automated exposure control 2. Adjustment of the mA and/or kV according to patient size 3. Use of iterative reconstruction technique Electronically signed by: Todd Ibrahim MD (09/24/2018 2:38 PM) [id number]
[2018-09-24 15:04] LABS: BACTERIA,URINE MANY /HPF (0-FEW)
[2018-09-24 15:14] LABS: CALCIUM 9.5 mg/dL (8.5-10.1); CREATININE 0.9 mg/dL (0.6-1.0); GFR 72.5; POTASSIUM 3.6 mmol/L (3.5-5.1)
[2018-09-24 15:20] LABS: ALBUMIN 3.7 g/dL (3.4-5.0); ALBUMIN/GLOBULIN RATIO 0.9 (1.0-1.7); TOTAL BILIRUBIN 0.3 mg/dL (0.2-1.0)
[2018-09-24] MEDS ORDERED: NITR100C62 PO (15:33)
[2018-09-24 16:54] VITALS: BP 159/74
== END 2018-09-24 18:20 | disposition home or self-care (01) ==
LOC: ER 13:02
DX: N39.0 Urinary tract infection, site not specified (principal); R41.82 Altered mental status, unspecified; E78.00 Pure hypercholesterolemia, unspecified; I10 Essential (primary) hypertension; E03.9 Hypothyroidism, unspecified; G30.9 Alzheimer's disease, unspecified; F02.80 Dementia in other diseases classified elsewhere, unspecified severity, without behavioral disturbance, psychotic disturbance, mood disturbance, and anxiety; Z90.710 Acquired absence of both cervix and uterus
CPT/HCPCS: 36415; 70450; 71045; 80053; 81001; 84484; 85025; 87086; 93005; 99285; P9612

== ENCOUNTER 2019-10-15 17:02 | Inpatient (IN) | payer MEDICARE, OTHER ==
[~2019-10-15] VITALS: Ht 149.9 cm; Wt 59.3 kg
[~2019-10-15 17:02] MED LIST changes: +ALBU2.5V5 NEB; +BUSP5TAB PO; +CEFD300C PO; -DICL100G18 TP; +DICL100G54 TP; +MELO7.5T29 PO; +NITR100C62 PO; +PANT20TA2 PO; +POTA20TA4 PO
[2019-10-15 17:21] LABS: BASO # 0.1 x10^3/uL (0.0-0.2); BASO % 1 % (0-3); EOS # 0.2 x10^3/uL (0.0-0.7); EOS % 3 % (0-3); HEMATOCRIT 36.4 % (36.0-47.0); HEMOGLOBIN 12.3 g/dL (12.0-15.5); LYMPH # 1.9 x10^3/uL (1.0-4.8); LYMPH % 24 % (24-48); MEAN CORPUSCULAR HEMOGLOBIN 29 pg (25-35); MEAN CORPUSCULAR HGB CONC 34 g/dL (31-37); MEAN CORPUSCULAR VOLUME 87 fL (79-100); MONO # 0.4 x10^3/uL (0.0-1.1); MONO % 5 % (0-9); NEUT # 5.3 x10^3/uL (1.8-7.7); NEUT % 68 % (31-73); PLATELET COUNT 301 x10^3/uL (140-400); RED BLOOD COUNT 4.21 x10^6/uL (3.50-5.40); RED CELL DISTRIBUTION WIDTH 14.5 % (11.5-14.5); WHITE BLOOD COUNT 7.9 x10^3/uL (4.0-11.0)
--- NOTE | 2019-10-15 17:26 | PHYS DOC ---
Past Medical History Past Medical History: Cancer, Dementia, High Cholesterol, Hypertension, H ypothyroid Additional Past Medical Histor: alzheimers, malnutrition Past Surgical History: Appendectomy, Cancer Surgery, Hysterectomy Smoking Status: Unknown if ever smoked Alcohol Use: None Drug Use: None General Adult EDM: Chief Complaint: ALTERED MENTAL STATUS HPI: HPI: Patient is a 83 year old female who presents following an episode of altered mental status. Patient was found sitting in a chair and found to be decreased responsiveness at a local [place]. Patient has similar episode in July was admitted to the hospital. Patient does have some vomit on her close, denies any pain at this time but has limited verbal response. Patient appears more alert than when the EMS arrived. Review of Systems: Review of Systems: Constitutional: Denies fever or chills. [] Eyes: Denies change in visual acuity. [] HENT: Denies nasal congestion or sore throat. [] Respiratory: Denies cough or shortness of breath. [] Cardiovascular: Denies chest pain or edema. [] GI: + vomiting : Denies dysuria. [] Musculoskeletal: Denies back pain or joint pain. [] Integument: Denies rash. [] Neurologic: Denies headache, focal weakness or sensory changes. +AMS Endocrine: Denies polyuria or polydipsia. [] Lymphatic: Denies swollen glands. [] Psychiatric: Denies depression or anxiety. [] Review of systems cannot be obtained due to patient's dementia and altered mental status Heart Score: Risk Factors: Risk Factors: DM, Current or recent (<one month) smoker, HTN, HLP, family history of CAD, obesity. Risk Scores: Score 0 - 3: 2.5% MACE over next 6 weeks - Discharge Home Score 4 - 6: 20.3% MACE over next 6 weeks - Admit for Clinical Observation Score 7 - 10: 72.7% MACE over next 6 weeks - Early Invasive Strategies Allergies: Allergies: Allergies Coded Allergies Type Severity Reaction Last Updated Verified Penicillins Allergy Intermediate 05/23/16 Yes clarithromycin Allergy Intermediate 06/04/18 Yes tetanus toxoid, adsorbed Allergy Intermediate 06/04/18 Yes Physical Exam: PE: Constitutional: Well developed, well nourished, no acute distress, non-toxic appearance. HENT: Normocephalic, atraumatic, bilateral external ears normal, oropharynx moist, no oral exudates, nose normal. Eyes: PERRLA, EOMI, conjunctiva normal, no discharge. [] Neck: Normal range of motion, no tenderness, supple, no stridor. Cardiovascular: Bradycardic, peripheral pulses intact Lungs & Thorax: Diminished breath sounds bilaterally Abdomen: Bowel sounds normal, soft, no tenderness, no masses, no pulsatile masses. Skin: Warm, dry, no erythema, no rash. Extremities: No tenderness, no cyanosis, no clubbing, ROM intact, no edema. Neurologic: Drowsy but arousable, moves all extremities, does not follow command s Psychologic: Normal mood EKG: EKG: Rate of 51, left axis deviation, left anterior fascicular block, poor baseline, most likely sinus bradycardia, nonspecific ST changes Radiology/Procedures: Radiology/Procedures: [][facility] [address] [place] [address] IMAGING REPORT Signed PATIENT: NIMCO KELLER ACCOUNT: [id number] : 1935 LOCATION: ER AGE: 83 SEX: F EXAM STATUS: REG ER ORD. PHYSICIAN: NIKOLE FLOYD MD REASON: sz, PT UNABLE TO HOLD STILL PROCEDURE: CT HEAD WO CONTRAST Exam: CT head without contrast. Date: 10/15/2019, comparison:None available Indication: Patient unable to hold still Technique: 5 mm axial images of the head were obtained without contrast. Findings: There is low attenuation within the periventricular white matter consistent with chronic small vessel ischemic disease. Prominence of cortical sulci and ventricular system is noted. There is cerebral atrophy. Midline structures are central. No hydrocephalus. No suspicious cerebral edema. No mass lesion or midline shift is seen. No extra axial fluid collection, intracranial hemorrhage or acute ischemia is detected. The visualized paranasal sinuses and mastoid air cells are clear. The osseous calvarium appears unremarkable. Impression: 1.Chronic small vessel ischemic disease and cerebral atrophy. 2.No acute findings. PQRS Compliance Statement: One or more of the following individualized dose reduction techniques were utilized for this examination: 1. Automated exposure control 2. Adjustment of the mA and/or kV according to patient size 3. Use of iterative reconstruction technique Electronically signed by: Faby Teran MD (10/15/2019 6:06 PM) [id number] DICTATED and SIGNED BY: FABY TERAN MD DATE: 10/15/19 1806 [facility] [address] [place] [address] IMAGING REPORT Signed PATIENT: NIMCO KELLER ACCOUNT: [id number] : 1935 LOCATION: ER AGE: 83 SEX: F EXAM STATUS: REG ER ORD. PHYSICIAN: NIKOLE FLOYD MD REASON: sz vs syncope PROCEDURE: PORTABLE CHEST 1V INDICATION: Reason: sz vs syncope / Spl. Instructions: / History: COMPARISON: June 20, 2019 FINDINGS: Single view of chest obtained. Enlarged cardiac silhouette with calcific atherosclerosis. Calcified granuloma right lung is again seen. Hypoexpanded exam without focal airspace consolidation or pulmonary edema. Surgical clips right upper quadrant of the abdomen. IMPRESSION: * Similar exam compared to prior without a new region of consolidation. Electronically signed by: Polly Lucio MD (10/15/2019 6:36 PM) [id number] DICTATED and SIGNED BY: POLLY LUCIO MD DATE: 10/15/19 1836 Course & Med Decision Making: Course & Med Decision Making Pertinent Labs and Imaging studies reviewed. (See chart for details) [18:14 patient clinically stable, discussed with Dr. Wang who will admit the pa tient observation.] D/W DR. SPENCER, WILL SEE IN HOSPITAL Work-up reveals mild hypokalemia. Patient will be placed in observation for further evaluation. Patient has no focal deficits and therefore will not get TPA. Dragon Disclaimer: Dragon Disclaimer: This electronic medical record was generated, in whole or in part, using a voice recognition dictation system. Departure Departure Impression: Primary Impression: Syncope Qualified Codes: R55 - Syncope and collapse Disposition: ADMITTED INPATIENT Admitting Physician: GRETCHENS (Dr. Wang) Condition: STABLE Referrals: JUAN LUIS KRISHNAN MD (PCP) Justicifation of Admission Dx: Justifications for Admission: Justification of Admission Dx: Yes Comments: SYNCOPE NIKOLE FLOYD MD Oct 15, 2019 17:26
[2019-10-15 17:28] LABS: CALCIUM 8.8 mg/dL (8.5-10.1); CREATININE 1.4 mg/dL (0.6-1.0); GFR 43.5
[2019-10-15 17:30] LABS: PROTHROMBIN TIME PATIENT 14.2 SEC (11.7-14.0)
[2019-10-15 17:33] LABS: ALBUMIN 3.3 g/dL (3.4-5.0); ALBUMIN/GLOBULIN RATIO 0.9 (1.0-1.7); TOTAL BILIRUBIN 0.2 mg/dL (0.2-1.0)
[2019-10-15 17:52] LABS: BILIRUBIN,URINE NEGATIVE (NEG); CLARITY,URINE CLEAR; COLOR,URINE YELLOW; NITRITE,URINE NEGATIVE (NEG); PH,URINE 7.5 (<5.0-8.0); PROTEIN,URINE NEGATIVE (NEG-TRACE)
[2019-10-15 18:07] LABS: SQUAMOUS EPITHELIAL CELL,UR MOD /LPF
[2019-10-15 18:09] LABS: BACTERIA,URINE 0 /HPF (0-FEW); RBC,URINE OCC /HPF (0-2); WBC,URINE OCC /HPF (0-4)
--- NOTE | 2019-10-15 18:09 | RAD ---
Exam: CT head without contrast. Date: 10/15/2019, comparison:None available Indication: Patient unable to hold still Technique: 5 mm axial images of the head were obtained without contrast. Findings: There is low attenuation within the periventricular white matter consistent with chronic small vessel ischemic disease. Prominence of cortical sulci and ventricular system is noted. There is cerebral atrophy. Midline structures are central. No hydrocephalus. No suspicious cerebral edema. No mass lesion or midline shift is seen. No extra axial fluid collection, intracranial hemorrhage or acute ischemia is detected. The visualized paranasal sinuses and mastoid air cells are clear. The osseous calvarium appears unremarkable. Impression: 1.Chronic small vessel ischemic disease and cerebral atrophy. 2.No acute findings. PQRS Compliance Statement: One or more of the following individualized dose reduction techniques were utilized for this examination: 1. Automated exposure control 2. Adjustment of the mA and/or kV according to patient size 3. Use of iterative reconstruction technique Electronically signed by: Faby Teran MD (10/15/2019 6:06 PM) [facility]
[2019-10-15] MEDS ORDERED: POTASSIUM CHLORIDE 20 MEQ TABLET.ER. PO ONE (18:30)
[2019-10-15] MEDS ORDERED: ONDANSETRON PF 4 MG/2 ML VIAL. IV PRN (18:30)
--- NOTE | 2019-10-15 18:40 | RAD ---
INDICATION: Reason: sz vs syncope / Spl. Instructions: / History: COMPARISON: June 20, 2019 FINDINGS: Single view of chest obtained. Enlarged cardiac silhouette with calcific atherosclerosis. Calcified granuloma right lung is again seen. Hypoexpanded exam without focal airspace consolidation or pulmonary edema. Surgical clips right upper quadrant of the abdomen. IMPRESSION: * Similar exam compared to prior without a new region of consolidation. Electronically signed by: Arthur Nettles MD (10/15/2019 6:36 PM) [id number]
[2019-10-15] MEDS ORDERED: ENOXAPARIN 30 MG/0.3 ML SYRINGE. SQ ONE (20:00)
--- NOTE | 2019-10-15 21:03 | PDOC1 ---
History and Physical Date of Admission: Date of Admission DATE: 10/15/19 TIME: 20:54 Chief Complaint: Chief Complain: Altered mental status History of Present Illness: HPI: Patient is a 83-year-old female with past medical history of dyslipidemia hypertension, hypothyroidism, dementia, bradycardia who is brought in for altered mental status. Patient was found unresponsive in [facility] chair at [facility]. Patient was admitted in July for similar incident. Upon arrival patient was more alert and responsive but is nonverbal due to her severe dementia. Upon my visitation, patient was mumbling and was only responding to her name and minimally following commands. According to the ED physician, patient was being evaluated by cardiology for possible loop recorder placement.. Past Medical/Surgical History: PMH/PSH: Dementia, High Cholesterol, Hypertension, Hypothyroid, alzheimers, malnutrition Appendectomy, Hysterectomy Allergies: Allergies: Coded Allergies: Penicillins (Verified Allergy, Intermediate, 05/23/16) clarithromycin (Verified Allergy, Intermediate, 06/04/18) tetanus toxoid, adsorbed (Verified Allergy, Intermediate, 06/04/18) Family History: Family History: Unable to provide Social History: Social History: Unknown history of tobacco, alcohol, or drug abuse Current Medications: Current Medications Current Medications Potassium Chloride (Klor-Con) 40 meq 1X ONCE PO Last administered on 10/15/19at 18:42; Start 10/15/19 at 18:30; Stop 10/15/19 at 18:31; Status DC Ondansetron HCl (Zofran) 4 mg PRN Q8HRS PRN IV NAUSEA/VOMITING; Start 10/15/19 at 18:30; Stop 10/16/19 at 18:29 Aspirin (Aspirin Chewable) 81 mg DAILY PO ; Start 10/16/19 at 09:00 Isosorbide Mononitrate (Imdur) 30 mg DAILY PO ; Start 10/16/19 at 09:00 Levothyroxine Sodium (Synthroid) 100 mcg DAILY06 PO ; Start 10/16/19 at 06:00 Enoxaparin Sodium (Lovenox 30mg Syringe) 30 mg 1X ONCE SQ ; Start 10/15/19 at 20:00; Stop 10/15/19 at 20:01; Status DC Active Scripts Active Culturelle (Lactobacillus Rhamnosus Gg) 1 Each Cap.sprink 1 Cap PO BID 7 Days Tylenol (Acetaminophen) 325 Mg Tablet 1-2 Tab PO QID Reported Buspirone Hcl 5 Mg Tablet 1 Tab PO TID Protonix (Pantoprazole Sodium) 20 Mg Tablet.dr 1 Tab PO DAILY Albuterol Sulfate Neb Soln (Albuterol Sulfate) 2.5 Mg/3 Ml Vial.neb 2.5 Mg NEB Q6HRS Pravastatin Sodium 40 Mg Tablet 40 Mg PO DAILY Lisinopril 40 Mg Tablet 40 Mg PO DAILY Isosorbide Mononitrate Er (Isosorbide Mononitrate) 30 Mg Tab.er.24h 30 Mg PO DAILY Flax Oil (Flaxseed Oil) 1,000 Mg Capsule 1,000 Mg PO DAILY Donepezil Hcl 10 Mg Tablet 1 Tab PO DAILY Calcium Magnesium + D Tablet (Calcium Carb/Mag Oxide/Vit D3) 1 Each Tablet 1 Each PO DAILY Aspirin 81 Mg Tab.chew 1 Tab PO DAILY Amlodipine Besylate 10 Mg Tablet 10 Mg PO DAILY ROS: Review of Systems Review of System REVIEW OF SYSTEMS: GENERAL: Denies weakness SKIN: No bruising, hair changes or rashes. EYES: No blurred, double or loss of vision. NOSE AND THROAT: No history of nosebleeds, hoarseness or sore throat. HEART: No history of palpitations, chest pain or shortness of breath on exertion. LUNGS: Denies cough, hemoptysis, wheezing or shortness of breath. GASTROINTESTINAL: Denies changes in appetite, nausea, vomiting, diarrhea or constipation. GENITOURINARY: No history of frequency, urgency, hesitancy or nocturia. NEUROLOGIC: Denies history of numbness, tingling, or tremor. PSYCHIATRIC: No history of panic, anxiety or depression. ENDOCRINE: No history of heat or cold intolerance, polyuria or polydipsia. EXTREMITIES: Denies joint pain, pain on walking or stiffness. Physical Exam: Vital Signs: Vital Signs Date Time Temp Pulse Resp B/P (MAP) Pulse Ox O2 Delivery O2 Flow Rate FiO2 10/15/19 18:39 51 96 10/15/19 17:02 96.4 20 128/69 (88) 96.4 Physcial Exam: GEN: No apparent distress. Alert and oriented HEENT: Normal cephalic, atraumatic, external auditory canals are patent EYES: Extraocular muscles are intact, pupil are equally round and reactive to light and accommodation MUSCULOSKELETAL: Well developed , well nourished, good range of motion ENDOCRINE: No thyromegaly was palpated LYMPHATICS: No cervical chain or axillary nodes were noted HEMATOPOIETIC: No bruising NECK: Supple, no JVD, no thyromegaly was noted LUNGS: Clear to auscultation in all lung escobar without rhonchi or wheezing HEART: Regular bradycardic rate. No murmurs or rubs or gallops. S4 is appreciated ABDOMEN: Soft, nontender. Positive bowel sounds, no organomegaly, normal bowel sounds EXTREMITIES: Without clubbing, cyanosis, or edema. Pedal pulses intact. Negative Homans sign NEUROLOGIC: Normal speech and tone. Alert and awake, moves all extremities, no obvious focal deficits PSYCHIATRIC: Normal affect, normal mood. Stable SKIN: No ulcerations or rashes, good skin turgor, no jaundice VASCULAR: Good capillary refill, neurovascular bundle appears to be intact Labs: Labs: Laboratory Tests Test 10/15/19 17:13 10/15/19 17:31 10/15/19 17:35 White Blood Count 7.9 x10^3/uL (4.0-11.0) Red Blood Count 4.21 x10^6/uL (3.50-5.40) Hemoglobin 12.3 g/dL (12.0-15.5) Hematocrit 36.4 % (36.0-47.0) Mean Corpuscular Volume 87 fL (79-100) Mean Corpuscular Hemoglobin 29 pg (25-35) Mean Corpuscular Hemoglobin Concent 34 g/dL (31-37) Red Cell Distribution Width 14.5 % (11.5-14.5) Platelet Count 301 x10^3/uL (140-400) Neutrophils (%) (Auto) 68 % (31-73) Lymphocytes (%) (Auto) 24 % (24-48) Monocytes (%) (Auto) 5 % (0-9) Eosinophils (%) (Auto) 3 % (0-3) Basophils (%) (Auto) 1 % (0-3) Neutrophils # (Auto) 5.3 x10^3/uL (1.8-7.7) Lymphocytes # (Auto) 1.9 x10^3/uL (1.0-4.8) Monocytes # (Auto) 0.4 x10^3/uL (0.0-1.1) Eosinophils # (Auto) 0.2 x10^3/uL (0.0-0.7) Basophils # (Auto) 0.1 x10^3/uL (0.0-0.2) Prothrombin Time 14.2 SEC (11.7-14.0) Prothromb Time International Ratio 1.1 (0.8-1.1) Activated Partial Thromboplast Time 26 SEC (24-38) Sodium Level 143 mmol/L (136-145) Potassium Level 3.0 mmol/L (3.5-5.1) Chloride Level 102 mmol/L (98-107) Carbon Dioxide Level 35 mmol/L (21-32) Anion Gap 6 (6-14) Blood Urea Nitrogen 15 mg/dL (7-20) Creatinine 1.4 mg/dL (0.6-1.0) Estimated GFR (Cockcroft-Gault) 43.5 BUN/Creatinine Ratio 11 (6-20) Glucose Level 132 mg/dL (70-99) Calcium Level 8.8 mg/dL (8.5-10.1) Total Bilirubin 0.2 mg/dL (0.2-1.0) Aspartate Amino Transf (AST/SGOT) 17 U/L (15-37) Alanine Aminotransferase (ALT/SGPT) 19 U/L (14-59) Alkaline Phosphatase 82 U/L (46-116) Troponin I Quantitative < 0.017 ng/mL (0.000-0.055) Total Protein 7.0 g/dL (6.4-8.2) Albumin 3.3 g/dL (3.4-5.0) Albumin/Globulin Ratio 0.9 (1.0-1.7) Ammonia < 10 mcmol/L (11-34) Urine Collection Type U cath Urine Color Yellow Urine Clarity Clear Urine pH 7.5 (<5.0-8.0) Urine Specific [place] 1.010 (1.000-1.030) Urine Protein Negative mg/dL (NEG-TRACE) Urine Glucose (UA) Negative mg/dL (NEG) Urine Ketones (Stick) Negative mg/dL (NEG) Urine Blood Negative (NEG) Urine Nitrite Negative (NEG) Urine Bilirubin Negative (NEG) Urine Urobilinogen Dipstick 1.0 mg/dL (0.2 mg/dL) Urine Leukocyte Esterase Negative (NEG) Urine RBC Occ /HPF (0-2) Urine WBC Occ /HPF (0-4) Urine Squamous Epithelial Cells Mod /LPF Urine Transitional Epithelial Cells Occ /LPF Urine Renal Epithelial Cells Occ /LPF Urine Bacteria 0 /HPF (0-FEW) Laboratory Tests Test 10/15/19 17:13 10/15/19 17:31 10/15/19 17:35 White Blood Count 7.9 x10^3/uL (4.0-11.0) Red Blood Count 4.21 x10^6/uL (3.50-5.40) Hemoglobin 12.3 g/dL (12.0-15.5) Hematocrit 36.4 % (36.0-47.0) Mean Corpuscular Volume 87 fL (79-100) Mean Corpuscular Hemoglobin 29 pg (25-35) Mean Corpuscular Hemoglobin Concent 34 g/dL (31-37) Red Cell Distribution Width 14.5 % (11.5-14.5) Platelet Count 301 x10^3/uL (140-400) Neutrophils (%) (Auto) 68 % (31-73) Lymphocytes (%) (Auto) 24 % (24-48) Monocytes (%) (Auto) 5 % (0-9) Eosinophils (%) (Auto) 3 % (0-3) Basophils (%) (Auto) 1 % (0-3) Neutrophils # (Auto) 5.3 x10^3/uL (1.8-7.7) Lymphocytes # (Auto) 1.9 x10^3/uL (1.0-4.8) Monocytes # (Auto) 0.4 x10^3/uL (0.0-1.1) Eosinophils # (Auto) 0.2 x10^3/uL (0.0-0.7) Basophils # (Auto) 0.1 x10^3/uL (0.0-0.2) Prothrombin Time 14.2 SEC (11.7-14.0) Prothromb Time International Ratio 1.1 (0.8-1.1) Activated Partial Thromboplast Time 26 SEC (24-38) Sodium Level 143 mmol/L (136-145) Potassium Level 3.0 mmol/L (3.5-5.1) Chloride Level 102 mmol/L (98-107) Carbon Dioxide Level 35 mmol/L (21-32) Anion Gap 6 (6-14) Blood Urea Nitrogen 15 mg/dL (7-20) Creatinine 1.4 mg/dL (0.6-1.0) Estimated GFR (Cockcroft-Gault) 43.5 BUN/Creatinine Ratio 11 (6-20) Glucose Level 132 mg/dL (70-99) Calcium Level 8.8 mg/dL (8.5-10.1) Total Bilirubin 0.2 mg/dL (0.2-1.0) Aspartate Amino Transf (AST/SGOT) 17 U/L (15-37) Alanine Aminotransferase (ALT/SGPT) 19 U/L (14-59) Alkaline Phosphatase 82 U/L (46-116) Troponin I Quantitative < 0.017 ng/mL (0.000-0.055) Total Protein 7.0 g/dL (6.4-8.2) Albumin 3.3 g/dL (3.4-5.0) Albumin/Globulin Ratio 0.9 (1.0-1.7) Ammonia < 10 mcmol/L (11-34) Urine Collection Type U cath Urine Color Yellow Urine Clarity Clear Urine pH 7.5 (<5.0-8.0) Urine Specific [place] 1.010 (1.000-1.030) Urine Protein Negative mg/dL (NEG-TRACE) Urine Glucose (UA) Negative mg/dL (NEG) Urine Ketones (Stick) Negative mg/dL (NEG) Urine Blood Negative (NEG) Urine Nitrite Negative (NEG) Urine Bilirubin Negative (NEG) Urine Urobilinogen Dipstick 1.0 mg/dL (0.2 mg/dL) Urine Leukocyte Esterase Negative (NEG) Urine RBC Occ /HPF (0-2) Urine WBC Occ /HPF (0-4) Urine Squamous Epithelial Cells Mod /LPF Urine Transitional Epithelial Cells Occ /LPF Urine Renal Epithelial Cells Occ /LPF Urine Bacteria 0 /HPF (0-FEW) Assessment/Plan Assessment/Plan Acute metabolic encephalopathy Acute electrolyte derangement Symptomatic bradycardia Severe dementia, possible hypo-delirium Hypothyroidism Hypertension Dyslipidemia We will admit for observation and telemetry monitoring Cardiology consult for bradycardia Electrolyte replacement protocol We will hold on any antihypertensive home medications for now We will continue aspirin and isosorbide nitrate and levothyroxine Lovenox for DVT prophylaxis Regular diet Full code Discussed with RN Justicifation of Admission Dx: Justifications for Admission: Justification of Admission Dx: Yes ABISAI LEE MD Oct 15, 2019 21:03
--- NOTE | 2019-10-15 23:10 | NUR ---
ADMISSION NOTE Pt admitted to room 650 via ER cart. Pt transferred to bed with 2 assist. Pt is alert, but has garbled unintelligible speech. According to [facility] Staff on the phone, that is baseline for the pt, and that you can understand a few words occasionally, usually when the pt is upset. Admission assessment completed at this time. 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 Bed alarm on, pt turned to the right. Will monitor.
[2019-10-16] VITALS (7 sets, daily range): BP systolic 139–177; BP diastolic 53–85
[2019-10-16] MEDS ORDERED: HYDR-2868 PO (03:55)
--- NOTE | 2019-10-16 03:56 | NUR ---
NURSING NOTE Pt agitated and trying to hit staff when attempting to change her brief and reposition. Explained to pt what we were doing, but pt still upset and agitated with being repositioned.
--- NOTE | 2019-10-16 06:19 | EKG ---
[facility] [address] [place] [address] Test Date: 2019-10-15 Test Time: 17:13:48 Pat Name: NIMCO KELLER Department: Room: Gender: F [employer] Worker: : 1935 Requested By: NIKOLE FLOYD Order Number: [id number] Reading MD: Measurements Intervals [place] Rate: 51 P: [place]: QRS: -74 QRSD: 126 T: 43 QT: 442 QTc: 409 Interpretive Statements IRREGULAR RHYTHM, NO P-WAVE FOUND ABNORMAL LEFT AXIS DEVIATION LEFT ANTERIOR FASCICULAR BLOCK RIGHT BUNDLE BRANCH BLOCK BIFASCICULAR BLOCK QRS(T) CONTOUR ABNORMALITY CONSIDER INFERIOR MYOCARDIAL DAMAGE ABNORMAL ECG RI6.01 No previous ECG available for comparison
[2019-10-16] MEDS: LEVOTHYROXINE 100 MCG TABLET PO SCH (06:43)
[2019-10-16] MEDS: ISOSORBIDE MONONITRATE ER 30 MG TAB.ER.24H PO SCH (09:13)
[2019-10-16] MEDS: ASPIRIN CHEWABLE 81 MG TABLET. PO SCH (09:13)
[2019-10-16] MEDS ORDERED: POTASSIUM CHLORIDE 10MEQ 100 ML IV SCH (09:30)
[2019-10-16] MEDS ORDERED: ELECTROLYTE (NON-ICU) PROTOCOL MC PRN (09:30)
[2019-10-16] MEDS ORDERED: POTASSIUM BICARB 20 MEQ EFFERVESCENT TABLET. FT ONE (09:30)
[2019-10-16] MEDS: POTASSIUM CHLORIDE 10MEQ 100 ML IV SCH ×2 (10:00→10:03)
[2019-10-16] MEDS ORDERED: POTASSIUM CHLORIDE 20 MEQ TABLET.ER. PO ONE ×4 (10:45→17:00)
--- NOTE | 2019-10-16 10:52 | PDOC2 ---
ARNOL WALLIS HOME OFFICE CLAIM SPECIALIST 10/16/19 1052: CARDIAC CONSULT DATE OF CONSULT Date of Consult DATE: 10/16/19 TIME: 10:38 REASON FOR CONSULT Reason for Consult: Syncope REFERRING PHYSICIAN Referring Physician: Dr. Truong SOURCE Source: Chart review HISTORY OF PRESENT ILLNESS HISTORY OF PRESENT ILLNESS This is an 83 yo female who presented from nursing facility secondary to altered mental status, period of unresponsiveness. Was evaluated by our service for similar episode in July of this year. Loop recorder was considered at this time, but family deferred. PAST MEDICAL HISTORY Cardiovascular: HTN, Hyperlipidemia CENTRAL NERVOUS SYSTEM: Dementia Heme/Onc: Cancer (thyroid) Psych: Depression Musculoskeletal: Osteoarthritis Renal/: Urinary Incontinence Endocrine: Hypothyroidism (acquired ) PAST SURGICAL HISTORY Past Surgical History: Appendectomy, Hysterectomy, Other (thyroidectomy ) FAMILY HISTORY Family History: Hypertension SOCIAL HISTORY Smoke: No ALCOHOL: none Drugs: None Lives: [facility] CURRENT MEDICATIONS CURRENT MEDICATIONS Current Medications Medications (Trade) Dose Ordered Sig/Jose Route PRN Reason Start Time Stop Time Status Last Admin Dose Admin Potassium Chloride (Klor-Con) 40 meq 1X ONCE PO 10/15/19 18:30 10/15/19 18:31 DC 10/15/19 18:42 Aspirin (Aspirin Chewable) 81 mg DAILY PO 10/16/19 09:00 10/16/19 09:13 Isosorbide Mononitrate (Imdur) 30 mg DAILY PO 10/16/19 09:00 10/16/19 09:13 Levothyroxine Sodium (Synthroid) 100 mcg DAILY06 PO 10/16/19 06:00 10/16/19 06:43 Enoxaparin Sodium (Lovenox 30mg Syringe) 30 mg 1X ONCE SQ 10/15/19 20:00 10/15/19 20:01 DC 10/15/19 23:57 ALLERGIES ALLERGIES: Coded Allergies: Penicillins (Verified Allergy, Intermediate, 05/23/16) clarithromycin (Verified Allergy, Intermediate, 06/04/18) tetanus toxoid, adsorbed (Verified Allergy, Intermediate, 06/04/18) ROS Review of System unobtainable due to dementia PHYSICAL EXAM General: Alert, No acute distress, Other (confused ) HEENT: Atraumatic Lungs: Clear to auscultation Heart: Regular rate Abdomen: Soft, No tenderness Extremities: No edema Skin: No significant lesion Neuro: Sensation intact Psych/Mental Status: Other (confused, agitated at times ) MUSCULOSKELETAL: Osteoarthritic changes both hands VITALS/I&O VITALS/I&O: Vital Signs Date Time Temp Pulse Resp B/P (MAP) Pulse Ox O2 Delivery O2 Flow Rate FiO2 10/16/19 09:13 54 145/54 10/16/19 07:15 97.6 18 97 97.6 10/16/19 03:05 Room Air I & O 10/15/19 10/15/19 10/16/19 15:00 23:00 07:00 Intake Total 0 ml Balance 0 ml LABS Lab: Laboratory Tests Test 10/15/19 17:13 10/15/19 17:31 10/15/19 17:35 White Blood Count 7.9 x10^3/uL (4.0-11.0) Red Blood Count 4.21 x10^6/uL (3.50-5.40) Hemoglobin 12.3 g/dL (12.0-15.5) Hematocrit 36.4 % (36.0-47.0) Mean Corpuscular Volume 87 fL (79-100) Mean Corpuscular Hemoglobin 29 pg (25-35) Mean Corpuscular Hemoglobin Concent 34 g/dL (31-37) Red Cell Distribution Width 14.5 % (11.5-14.5) Platelet Count 301 x10^3/uL (140-400) Neutrophils (%) (Auto) 68 % (31-73) Lymphocytes (%) (Auto) 24 % (24-48) Monocytes (%) (Auto) 5 % (0-9) Eosinophils (%) (Auto) 3 % (0-3) Basophils (%) (Auto) 1 % (0-3) Neutrophils # (Auto) 5.3 x10^3/uL (1.8-7.7) Lymphocytes # (Auto) 1.9 x10^3/uL (1.0-4.8) Monocytes # (Auto) 0.4 x10^3/uL (0.0-1.1) Eosinophils # (Auto) 0.2 x10^3/uL (0.0-0.7) Basophils # (Auto) 0.1 x10^3/uL (0.0-0.2) Prothrombin Time 14.2 SEC (11.7-14.0) H Prothrombin Time INR 1.1 (0.8-1.1) Activated Partial Thromboplast Time 26 SEC (24-38) Sodium Level 143 mmol/L (136-145) Potassium Level 3.0 mmol/L (3.5-5.1) L Chloride Level 102 mmol/L (98-107) Carbon Dioxide Level 35 mmol/L (21-32) H Anion Gap 6 (6-14) Blood Urea Nitrogen 15 mg/dL (7-20) Creatinine 1.4 mg/dL (0.6-1.0) H Estimated GFR (Cockcroft-Gault) 43.5 BUN/Creatinine Ratio 11 (6-20) Glucose Level 132 mg/dL (70-99) H Calcium Level 8.8 mg/dL (8.5-10.1) Total Bilirubin 0.2 mg/dL (0.2-1.0) Aspartate Amino Transferase (AST) 17 U/L (15-37) Alanine Aminotransferase (ALT) 19 U/L (14-59) Alkaline Phosphatase 82 U/L (46-116) Troponin I Quantitative < 0.017 ng/mL (0.000-0.055) Total Protein 7.0 g/dL (6.4-8.2) Albumin 3.3 g/dL (3.4-5.0) L Albumin/Globulin Ratio 0.9 (1.0-1.7) L Ammonia < 10 mcmol/L (11-34) L Urine Collection Type U cath Urine Color Yellow Urine Clarity Clear Urine pH 7.5 (<5.0-8.0) Urine Specific [place] 1.010 (1.000-1.030) Urine Protein Negative mg/dL (NEG-TRACE) Urine Glucose (UA) Negative mg/dL (NEG) Urine Ketones (Stick) Negative mg/dL (NEG) Urine Blood Negative (NEG) Urine Nitrite Negative (NEG) Urine Bilirubin Negative (NEG) Urine Urobilinogen Dipstick 1.0 mg/dL (0.2 mg/dL) Urine Leukocyte Esterase Negative (NEG) Urine RBC Occ /HPF (0-2) Urine WBC Occ /HPF (0-4) Urine Squamous Epithelial Cells Mod /LPF Urine Transitional Epithelial Cells Occ /LPF Urine Renal Epithelial Cells Occ /LPF Urine Bacteria 0 /HPF (0-FEW) Laboratory Tests 10/15/19 17:13 Laboratory Tests 10/15/19 17:13 ECHOCARDIOGRAM ECHOCARDIOGRAM <Conclusion> The left ventricle is normal size. There is normal left ventricular wall thickness. The left ventricular systolic function is normal and the ejection fraction is within normal range. The Ejection Fraction is 60-65%. Transmitral Doppler flow pattern is Grade I-abnormal relaxation pattern. There is no evidence of significant pericardial effusion. There is no mitral valve stenosis. Doppler and Color-flow revealed trace mitral regurgitation. The left atrium is of a normaal size There is no significant aortic valvular stenosis. The right ventricle is of a normal size with normal systolic function Doppler and Color Flow revealed trace to mild tricuspid regurgitation. The PA pressure was estimated at 28 mmHg. There is moderate pulmonic regurgitation DATE: 09/01/161912 ASSESSMENT/PLAN ASSESSMENT/PLAN 1. Syncope; tachybrady versus vagal episodes versus hypotension. Lowest HR 39, now pauses 2. Hypertension; mildly elevated 3. Hyperlipidemia 4. MT 5. Hypokalemia 6. Dementia. Recommendations Monitor tele Avoid AV braydon blocking agents Check Mg-replace as warranted Recommend ILR to r/o contributing arrhythmias. Discussed with DPOA, daughter Justyna Tubbs. R/b/a of ILR discussed and she would like to proceed Will plan for implantation tomorrow Supportive care KENYON SPENCER MD 10/19/19 1947: CARDIAC CONSULT ASSESSMENT/PLAN ASSESSMENT/PLAN Late entry for 10/16/2019 Pt. seen and examined. Agree with above [employer] note. ARNOL WALLIS APRN Oct 16, 2019 10:52 KENYON SPENCER MD Oct 19, 2019 19:47
--- NOTE | 2019-10-16 11:07 | NUR ---
SW following for discharge planning. Reviewed chart and spoke with RN and CM. Pt resides in LTC at [facility], , (fax). Coordinated care with Fanny from [facility]. Pt observation status. Pt on room air and oral medications. SW to follow as needed. Addendum: 10/16/19 at 1128 by LINH LANTIGUA [facility] is requesting COVID testing on pt prior to pt returning to their facility. RHINA requested that Dr. Wang order the test.
--- NOTE | 2019-10-16 13:06 | PDOC ---
[facility] PROGRESS NOTE Chief Complaint Chief Complaint Acute metabolic encephalopathy Acute electrolyte derangement Symptomatic bradycardia Severe dementia, possible hypo-delirium Hypothyroidism Hypertension Dyslipidemia Continue to observe on telemetry monitoring Pending cardiology consult for bradycardia Electrolyte replacement protocol We will hold on any antihypertensive home medications for now We will continue aspirin and isosorbide nitrate and levothyroxine Lovenox for DVT prophylaxis Regular diet Full code Discussed with RN History of Present Illness History of Present Illness 83-year-old female with past medical history of dyslipidemia hypertension, hypothyroidism, dementia, bradycardia who is brought in for altered mental status. Patient was found unresponsive in her chair at [facility]. Patient was admitted in July for similar incident. Upon arrival patient was more alert and responsive but is nonverbal due to her severe dementia. Upon my visitation, patient was mumbling and was only responding to her name and minimally following commands. According to the ED physician, patient was being evaluated by cardiology for possible loop recorder placement.. 10/16/2019 Patient seen and examined bedside today. Patient continues to bradycardia bradycardic. No acute events last night. No major telemetry events overnight. Pending cardiology consult. Patient needs to be COVID tested again before returning back to nursing facility Vitals/I&O Vitals/I&O: Vital Signs Date Time Temp Pulse Resp B/P (MAP) Pulse Ox O2 Delivery O2 Flow Rate FiO2 10/16/19 11:58 98.2 46 17 153/62 (92) 87 98.2 10/16/19 08:00 Room Air I & O 10/15/19 10/15/19 10/16/19 15:00 23:00 07:00 Intake Total 0 ml Balance 0 ml Physical Exam Physical Exam: GEN: No apparent distress. Alert and oriented HEENT: Normal cephalic, atraumatic, external auditory canals are patent EYES: Extraocular muscles are intact, pupil are equally round and reactive to light and accommodation MUSCULOSKELETAL: Well developed , well nourished, good range of motion ENDOCRINE: No thyromegaly was palpated LYMPHATICS: No cervical chain or axillary nodes were noted HEMATOPOIETIC: No bruising NECK: Supple, no JVD, no thyromegaly was noted LUNGS: Clear to auscultation in all lung escobar without rhonchi or wheezing HEART: Regular bradycardic rate. No murmurs or rubs or gallops. S4 is appreciated ABDOMEN: Soft, nontender. Positive bowel sounds, no organomegaly, normal bowel sounds EXTREMITIES: Without clubbing, cyanosis, or edema. Pedal pulses intact. Negative Homans sign NEUROLOGIC: Normal speech and tone. Alert and awake, moves all extremities, no obvious focal deficits PSYCHIATRIC: Normal affect, normal mood. Stable SKIN: No ulcerations or rashes, good skin turgor, no jaundice VASCULAR: Good capillary refill, neurovascular bundle appears to be intact Lungs: Clear Labs Labs: Laboratory Tests Test 10/15/19 17:13 10/15/19 17:31 10/15/19 17:35 White Blood Count 7.9 x10^3/uL (4.0-11.0) Red Blood Count 4.21 x10^6/uL (3.50-5.40) Hemoglobin 12.3 g/dL (12.0-15.5) Hematocrit 36.4 % (36.0-47.0) Mean Corpuscular Volume 87 fL (79-100) Mean Corpuscular Hemoglobin 29 pg (25-35) Mean Corpuscular Hemoglobin Concent 34 g/dL (31-37) Red Cell Distribution Width 14.5 % (11.5-14.5) Platelet Count 301 x10^3/uL (140-400) Neutrophils (%) (Auto) 68 % (31-73) Lymphocytes (%) (Auto) 24 % (24-48) Monocytes (%) (Auto) 5 % (0-9) Eosinophils (%) (Auto) 3 % (0-3) Basophils (%) (Auto) 1 % (0-3) Neutrophils # (Auto) 5.3 x10^3/uL (1.8-7.7) Lymphocytes # (Auto) 1.9 x10^3/uL (1.0-4.8) Monocytes # (Auto) 0.4 x10^3/uL (0.0-1.1) Eosinophils # (Auto) 0.2 x10^3/uL (0.0-0.7) Basophils # (Auto) 0.1 x10^3/uL (0.0-0.2) Prothrombin Time 14.2 SEC (11.7-14.0) Prothromb Time International Ratio 1.1 (0.8-1.1) Activated Partial Thromboplast Time 26 SEC (24-38) Sodium Level 143 mmol/L (136-145) Potassium Level 3.0 mmol/L (3.5-5.1) Chloride Level 102 mmol/L (98-107) Carbon Dioxide Level 35 mmol/L (21-32) Anion Gap 6 (6-14) Blood Urea Nitrogen 15 mg/dL (7-20) Creatinine 1.4 mg/dL (0.6-1.0) Estimated GFR (Cockcroft-Gault) 43.5 BUN/Creatinine Ratio 11 (6-20) Glucose Level 132 mg/dL (70-99) Calcium Level 8.8 mg/dL (8.5-10.1) Total Bilirubin 0.2 mg/dL (0.2-1.0) Aspartate Amino Transf (AST/SGOT) 17 U/L (15-37) Alanine Aminotransferase (ALT/SGPT) 19 U/L (14-59) Alkaline Phosphatase 82 U/L (46-116) Troponin I Quantitative < 0.017 ng/mL (0.000-0.055) Total Protein 7.0 g/dL (6.4-8.2) Albumin 3.3 g/dL (3.4-5.0) Albumin/Globulin Ratio 0.9 (1.0-1.7) Ammonia < 10 mcmol/L (11-34) Urine Collection Type U cath Urine Color Yellow Urine Clarity Clear Urine pH 7.5 (<5.0-8.0) Urine Specific Alba 1.010 (1.000-1.030) Urine Protein Negative mg/dL (NEG-TRACE) Urine Glucose (UA) Negative mg/dL (NEG) Urine Ketones (Stick) Negative mg/dL (NEG) Urine Blood Negative (NEG) Urine Nitrite Negative (NEG) Urine Bilirubin Negative (NEG) Urine Urobilinogen Dipstick 1.0 mg/dL (0.2 mg/dL) Urine Leukocyte Esterase Negative (NEG) Urine RBC Occ /HPF (0-2) Urine WBC Occ /HPF (0-4) Urine Squamous Epithelial Cells Mod /LPF Urine Transitional Epithelial Cells Occ /LPF Urine Renal Epithelial Cells Occ /LPF Urine Bacteria 0 /HPF (0-FEW) Review of Systems Review of Systems: CONSTITUIONAL: Denies weight loss, fever and chills. HEENT: Denies changes in vision and hearing. RESPIRATORY: Denies SOB and cough. CV: Denies palpitations and CP. GI: Denies abdominal pain, nausea, vomiting and diarrhea. : Denies dysuria and urinary frequency. MSK: Denies myalgia and joint pain. SKIN: Denies rash and pruritus. NEUROLOGICAL: Denies headache and syncope. PSYCHIATRIC: Denies recent changes in mood. Denies anxiety and depression. Assessment and Plan Assessmemt and Plan Problems Medical Problems: (1) Syncope Status: Acute Comment Review of Relevant I have reviewed the following items glenna (where applicable) has been applied. Medications: Current Medications Medications (Trade) Dose Ordered Sig/Jose Route PRN Reason Start Time Stop Time Status Last Admin Dose Admin Potassium Chloride (Klor-Con) 40 meq 1X ONCE PO 10/15/19 18:30 10/15/19 18:31 DC 10/15/19 18:42 Aspirin (Aspirin Chewable) 81 mg DAILY PO 10/16/19 09:00 10/16/19 09:13 Isosorbide Mononitrate (Imdur) 30 mg DAILY PO 10/16/19 09:00 10/16/19 09:13 Levothyroxine Sodium (Synthroid) 100 mcg DAILY06 PO 10/16/19 06:00 10/16/19 06:43 Enoxaparin Sodium (Lovenox 30mg Syringe) 30 mg 1X ONCE SQ 10/15/19 20:00 10/15/19 20:01 DC 10/15/19 23:57 Potassium Chloride (Klor-Con) 40 meq 1X ONCE PO 10/16/19 11:00 10/16/19 11:01 DC 10/16/19 11:03 Justicifation of Admission Dx: Justifications for Admission: Justification of Admission Dx: Yes ABISAI LEE MD Oct 16, 2019 13:06
--- NOTE | 2019-10-17 02:53 | NUR ---
TELE NOTE: Patient takes tele monitor off multiple times throughout shift. This RN keeps replacing monitor. Patient will not leave on. Will pass along to day RN.
[2019-10-17 03:06] VITALS: BP 185/69
[2019-10-17] MEDS: LEVOTHYROXINE 100 MCG TABLET PO SCH (05:20)
[2019-10-17 05:37] LABS: GFR 64.1; POTASSIUM 3.4 mmol/L (3.5-5.1)
[2019-10-17 07:49] VITALS: BP 174/73
[2019-10-17] MEDS ORDERED: MAGNESIUM SULFATE 2GM 50 ML IV PRN (08:30)
[2019-10-17] MEDS ORDERED: POTASSIUM BICARB 20 MEQ EFFERVESCENT TABLET. PO PRN (08:30)
[2019-10-17] MEDS ORDERED: POTASSIUM CHLORIDE 10MEQ 100 ML IV PRN ×2 (08:30)
[2019-10-17] MEDS ORDERED: POTASSIUM CHLORIDE 20 MEQ TABLET.ER. PO PRN (08:30)
[2019-10-17] MEDS ORDERED: POTASSIUM CHLORIDE 20 MEQ TABLET.ER. PO ONE (09:00)
[2019-10-17] MEDS ORDERED: POTASSIUM & SODIUM PHOSPHATES PACKET. PO PRN (09:00)
[2019-10-17] MEDS: ISOSORBIDE MONONITRATE ER 30 MG TAB.ER.24H PO SCH (09:00)
[2019-10-17] MEDS ORDERED: MAGNESIUM OXIDE 400 MG TABLET PO PRN (09:00)
[2019-10-17] MEDS: ASPIRIN CHEWABLE 81 MG TABLET. PO SCH (09:00)
[2019-10-17 11:18] VITALS: BP 165/72
--- NOTE | 2019-10-17 13:26 | NUR ---
SW following for discharge planning. Reviewed chart and spoke with RN and CM. Pt resides in LTC at [facility], , (fax). Coordinated care with Fanny from [facility] and faxed clinicals. RN stated pt can discharge with out-patient follow up per Dr. Hayward but [facility] is requesting COVID results. Pt remains COVID pending. RHINA has the chart copied and ready to be sent with pt back to [facility] once COVID results come back. RHINA added pt to the weekend discharge list. Pt on room air and oral medications. SW to follow as needed. Addendum: 10/17/19 at 1559 by LINH LANTIGUA COVID results came back negative. Coordinated discharge with RN, Dr. Wang and Fanny from [facility]. Pt to discharge today back to LTC. RHINA phoned and faxed discharge orders, , (fax). [facility] RN to call report. No further SW needs at this time.
--- NOTE | 2019-10-17 14:46 | PDOC ---
[facility] PROGRESS NOTE Chief Complaint Chief Complaint COVID rule out Acute metabolic encephalopathy Acute electrolyte derangement Symptomatic bradycardia Severe dementia, possible hypo-delirium Hypothyroidism Hypertension Dyslipidemia Continue to observe on telemetry monitoring Pending cardiology consult for bradycardia Electrolyte replacement protocol We will hold on any antihypertensive home medications for now We will continue aspirin and isosorbide nitrate and levothyroxine Lovenox for DVT prophylaxis Regular diet Full code Discussed with RN Disposalpatient pending repeat COVID testing before [facility]. Patient will be anticipated for discharge tomorrow a.m. once COVID results come back. Patient will have implantable loop recorder placed as an outpatient with cardiology History of Present Illness History of Present Illness 83-year-old female with past medical history of dyslipidemia hypertension, hypothyroidism, dementia, bradycardia who is brought in for altered mental status. Patient was [facility] un[facility] in [facility] at [facility]. Patient was admitted in July for similar incident. Upon arrival patient was more alert and responsive but is nonverbal due to her severe dementia. Upon my visitation, patient was mumbling and was only responding to her name and minimally following commands. According to the ED physician, patient was being evaluated by cardiology for possible loop recorder placement.. 10/17/2019 No acute events overnight no acute telemetry events. Patient continues to be bradycardic in the 50s. Patient seen and examined bedside today. She is at her baseline dementia presentation. 10/16/2019 Patient seen and examined bedside today. Patient continues to bradycardia bradycardic. No acute events last night. No major telemetry events overnight. Pending cardiology consult. Patient needs to be COVID tested again before returning back to nursing facility Vitals/I&O Vitals/I&O: Vital Signs Date Time Temp Pulse Resp B/P (MAP) Pulse Ox O2 Delivery O2 Flow Rate FiO2 10/17/19 11:18 97.3 53 16 165/72 (103) 98 Room Air 97.3 I & O 10/16/19 10/16/19 10/17/19 15:00 23:00 07:00 Intake Total 240 ml Output Total 0 ml Balance 240 ml 0 ml Physical Exam Physical Exam: GEN: No apparent distress. Alert and oriented HEENT: Normal cephalic, atraumatic, external auditory canals are patent EYES: Extraocular muscles are intact, pupil are equally round and reactive to light and accommodation MUSCULOSKELETAL: Well developed , well nourished, good range of motion ENDOCRINE: No thyromegaly was palpated LYMPHATICS: No cervical chain or axillary nodes were noted HEMATOPOIETIC: No bruising NECK: Supple, no JVD, no thyromegaly was noted LUNGS: Clear to auscultation in all lung escobar without rhonchi or wheezing HEART: Regular bradycardic rate. No murmurs or rubs or gallops. S4 is appreciated ABDOMEN: Soft, nontender. Positive bowel sounds, no organomegaly, normal bowel sounds EXTREMITIES: Without clubbing, cyanosis, or edema. Pedal pulses intact. Negative Homans sign NEUROLOGIC: Normal speech and tone. Alert and awake, moves all extremities, no obvious focal deficits PSYCHIATRIC: Normal affect, normal mood. Stable SKIN: No ulcerations or rashes, good skin turgor, no jaundice VASCULAR: Good capillary refill, neurovascular bundle appears to be intact Lungs: Clear Labs Labs: Laboratory Tests Test 10/16/19 19:36 10/17/19 04:30 Magnesium Level 2.2 mg/dL (1.8-2.4) Sodium Level 142 mmol/L (136-145) Potassium Level 3.4 mmol/L (3.5-5.1) Chloride Level 103 mmol/L (98-107) Carbon Dioxide Level 34 mmol/L (21-32) Anion Gap 5 (6-14) Blood Urea Nitrogen 12 mg/dL (7-20) Creatinine 1.0 mg/dL (0.6-1.0) Estimated GFR (Cockcroft-Gault) 64.1 Glucose Level 85 mg/dL (70-99) Calcium Level 9.0 mg/dL (8.5-10.1) Review of Systems Review of Systems: CONSTITUIONAL: Denies weight loss, fever and chills. HEENT: Denies changes in vision and hearing. RESPIRATORY: Denies SOB and cough. CV: Denies palpitations and CP. GI: Denies abdominal pain, nausea, vomiting and diarrhea. : Denies dysuria and urinary frequency. MSK: Denies myalgia and joint pain. SKIN: Denies rash and pruritus. NEUROLOGICAL: Denies headache and syncope. PSYCHIATRIC: Denies recent changes in mood. Denies anxiety and depression. Assessment and Plan Assessmemt and Plan Problems Medical Problems: (1) Syncope Status: Acute Comment Review of Relevant I have reviewed the following items glenna (where applicable) has been applied. Medications: Current Medications Medications (Trade) Dose Ordered Sig/Jose Route PRN Reason Start Time Stop Time Status Last Admin Dose Admin Potassium Chloride (Klor-Con) 40 meq 1X ONCE PO 10/16/19 17:00 10/16/19 17:01 DC 10/16/19 16:49 Justicifation of Admission Dx: Justifications for Admission: Justification of Admission Dx: Yes ABISAI LEE MD Oct 17, 2019 14:46
[2019-10-17 15:24] VITALS: BP 164/74
--- NOTE | 2019-10-17 15:48 | SNU/HH DC ---
DISCHARGE ORDERS DISCHARGE INFORMATION: DISCHARGE DATE: Oct 17, 2019 FINAL DIAGNOSIS Problems Medical Problems: (1) Syncope Status: Acute CONDITION ON DISCHARGE: Stable CODE STATUS: Code Status: Full HALFWAY: SNF STAY <30 DAYS: No (Patient will need to follow-up with cardiology on Sunday for possible implantable loop recorder placement) POST DISCHARGE ORDERS: ACTIVITY ORDERS: Activity as tolerated WEIGHT BEARING STATUS: No restrictions DIET AFTER DISCHARGE: Regular CHECKS AFTER DISCHARGE: CHECKS AFTER DISCHARGE: Check blood press - daily, Check your Temp as needed, Weigh Yourself Daily TREATMENT/EQUIPMENT ORDERS: ADAPTIVE EQUIPMENT NEEDED: None, Front wheeled walker Physical Therapy For: Evalulation/Treatment Occupational Therapy For: Evaluation/Treatment Speech Language Pathology For: Evaluation/Treatment DISCHARGE MEDICATIONS: Home Meds Active Scripts Acetaminophen (TYLENOL) 325 Mg Tablet, 1-2 TAB PO QID, #60 TAB 2 Refills Prov:MORENITA PRICE MD 07/05/17 Reported Medications Hydralazine Hcl (HYDRALAZINE HCL) 25 Mg Tablet, 25 MG PO PRN Q6HRS PRN for ELEVATED BP, SEE COMMENTS, TAB 10/16/19 Albuterol Sulfate (ALBUTEROL SULFATE NEB SOLN) 2.5 Mg/3 Ml Vial.neb, 2.5 MG NEB Q6HRS for FOR ASTHMA, EACH 0 Refills 06/20/19 Levothyroxine Sodium (LEVOTHYROXINE SODIUM) 100 Mcg Tablet, 1 TAB PO DAILY for PER MED SHEET , #30 TAB 5 Refills 06/03/18 Lisinopril (LISINOPRIL) 40 Mg Tablet, 40 MG PO DAILY for FOR HYPERTENSION, #30 TAB 0 Refills 08/30/16 Isosorbide Mononitrate (ISOSORBIDE MONONITRATE ER) 30 Mg Tab.er.24h, 30 MG PO DAILY, TAB.SR 08/30/16 Flaxseed Oil (FLAX OIL) 1,000 Mg Capsule, 1000 MG PO DAILY, CAP 08/30/16 Donepezil Hcl (DONEPEZIL HCL) 10 Mg Tablet, 1 TAB PO DAILY, #90 TAB 3 Refills 08/30/16 Calcium Carb/Mag Oxide/Vit D3 (CALCIUM MAGNESIUM + D TABLET) 1 Each Tablet, 1 EACH PO DAILY, TAB 08/30/16 Aspirin (ASPIRIN) 81 Mg Tab.chew, 1 TAB PO DAILY, #90 TAB 3 Refills 08/30/16 Amlodipine Besylate (AMLODIPINE BESYLATE) 10 Mg Tablet, 10 MG PO DAILY, TAB 08/30/16 Discontinued Reported Medications Buspirone Hcl (BUSPIRONE HCL) 5 Mg Tablet, 1 TAB PO TID for anxiety, #60 TAB 2 Refills 07/19/19 Pantoprazole Sodium (PROTONIX) 20 Mg Tablet.dr, 1 TAB PO DAILY for Gerd, #30 TAB 06/20/19 Pravastatin Sodium (PRAVASTATIN SODIUM) 40 Mg Tablet, 40 MG PO DAILY, TAB 08/30/16 ABISAI LEE MD Oct 17, 2019 15:48
--- NOTE | 2019-10-17 15:56 | PDOC3 ---
[facility]-Discharge Summary Date of Admission: Date of Admission: Oct 16, 2019 Date of Discharge: Date of Discharge: Oct 17, 2019 Admission Diagnosis: Admitting Diagnosis: Acute metabolic encephalopathy Acute electrolyte derangement Symptomatic bradycardia Severe dementia, possible hypo-delirium Hypothyroidism Hypertension Dyslipidemia Discharge Diagnosis: Discharge Diagnosis: Acute metabolic encephalopathy Acute electrolyte derangement Symptomatic bradycardia Severe dementia, possible hypo-delirium Hypothyroidism Hypertension Dyslipidemia Hospital Course: Hospital Course: 83-year-old female with past medical history of dyslipidemia hypertension, hypothyroidism, dementia, bradycardia who is brought in for altered mental status. Patient was found unresponsive in her chair at [facility]. Patient was admitted in July for similar incident. Upon arrival patient was more alert and responsive but is nonverbal due to her severe dementia. Upon my visitation, patient was mumbling and was only responding to her name and minimally following commands. According to the ED physician, patient was being evaluated by cardiology for possible loop recorder placement Disposition: Disposition/Orders: D/C to Another Facility Activity: Activity: Resume previous activity Diet: Diet: Soft Medications: Home Meds Active Scripts Acetaminophen (TYLENOL) 325 Mg Tablet, 1-2 TAB PO QID, #60 TAB 2 Refills Prov:MORENITA PRICE MD 07/05/17 Reported Medications Hydralazine Hcl (HYDRALAZINE HCL) 25 Mg Tablet, 25 MG PO PRN Q6HRS PRN for ELEVATED BP, SEE COMMENTS, TAB 10/16/19 Albuterol Sulfate (ALBUTEROL SULFATE NEB SOLN) 2.5 Mg/3 Ml Vial.neb, 2.5 MG NEB Q6HRS for FOR ASTHMA, EACH 0 Refills 06/20/19 Levothyroxine Sodium (LEVOTHYROXINE SODIUM) 100 Mcg Tablet, 1 TAB PO DAILY for PER MED SHEET , #30 TAB 5 Refills 06/03/18 Lisinopril (LISINOPRIL) 40 Mg Tablet, 40 MG PO DAILY for FOR HYPERTENSION, #30 TAB 0 Refills 08/30/16 Isosorbide Mononitrate (ISOSORBIDE MONONITRATE ER) 30 Mg Tab.er.24h, 30 MG PO DAILY, TAB.SR 08/30/16 Flaxseed Oil (FLAX OIL) 1,000 Mg Capsule, 1000 MG PO DAILY, CAP 08/30/16 Donepezil Hcl (DONEPEZIL HCL) 10 Mg Tablet, 1 TAB PO DAILY, #90 TAB 3 Refills 08/30/16 Calcium Carb/Mag Oxide/Vit D3 (CALCIUM MAGNESIUM + D TABLET) 1 Each Tablet, 1 EACH PO DAILY, TAB 08/30/16 Aspirin (ASPIRIN) 81 Mg Tab.chew, 1 TAB PO DAILY, #90 TAB 3 Refills 08/30/16 Amlodipine Besylate (AMLODIPINE BESYLATE) 10 Mg Tablet, 10 MG PO DAILY, TAB 08/30/16 Discontinued Reported Medications Buspirone Hcl (BUSPIRONE HCL) 5 Mg Tablet, 1 TAB PO TID for anxiety, #60 TAB 2 Refills 07/19/19 Pantoprazole Sodium (PROTONIX) 20 Mg Tablet.dr, 1 TAB PO DAILY for Gerd, #30 TAB 06/20/19 Pravastatin Sodium (PRAVASTATIN SODIUM) 40 Mg Tablet, 40 MG PO DAILY, TAB 08/30/16 Scheduled Acetaminophen (Tylenol), 1-2 TAB PO QID Albuterol Sulfate (Albuterol Sulfate Neb Soln), 2.5 MG NEB Q6HRS, (Reported) Amlodipine Besylate (Amlodipine Besylate), 10 MG PO DAILY, (Reported) Aspirin (Aspirin), 1 TAB PO DAILY, (Reported) Calcium Carb/Mag Oxide/Vit D3 (Calcium Magnesium + D Tablet), 1 EACH PO DAILY, (Reported) Donepezil Hcl (Donepezil Hcl), 1 TAB PO DAILY, (Reported) Flaxseed Oil (Flax Oil), 1,000 MG PO DAILY, (Reported) Isosorbide Mononitrate (Isosorbide Mononitrate Er), 30 MG PO DAILY, (Reported) Levothyroxine Sodium (Levothyroxine Sodium), 1 TAB PO DAILY, (Reported) Lisinopril (Lisinopril), 40 MG PO DAILY, (Reported) Scheduled PRN Hydralazine Hcl (Hydralazine Hcl), 25 MG PO PRN Q6HRS PRN for ELEVATED BP, SEE COMMENTS, (Reported) Discontinued Medications Buspirone Hcl (Buspirone Hcl), 1 TAB PO TID, (Reported) Pantoprazole Sodium (Protonix), 1 TAB PO DAILY, (Reported) Pravastatin Sodium (Pravastatin Sodium), 40 MG PO DAILY, (Reported) Total Time: Total Time: Total time spent is greater than 35 minutes Justicifation of Admission Dx: Justifications for Admission: Justification of Admission Dx: Yes ABISAI LEE MD Oct 17, 2019 15:56
--- NOTE | 2019-10-17 16:29 | NUR ---
Discharge Note: NIMCO KELLER Q6 [facility] Discharge instructions and discharge home medications reviewed with Em at [facility] and a copy given. All questions have been answered and understanding verbalized. The following instructions and handouts were given: transfer of care. Discontinued lines and drains: No IV present. [facility].
== END 2019-10-17 16:31 | DRG 308 ==
LOC: ER 17:02 → 6 SOUTH 18:50 → OBSVTOIN 10-16 12:01
PROVIDERS: ADMIT Internal Medicine; ATTEND Internal Medicine
DX: R00.1 Bradycardia, unspecified (principal); G93.41 Metabolic encephalopathy; N17.9 Acute kidney failure, unspecified; Z20.828 Contact with and (suspected) exposure to other viral communicable diseases; E78.5 Hyperlipidemia, unspecified; E78.00 Pure hypercholesterolemia, unspecified; I10 Essential (primary) hypertension; F32.9 Major depressive disorder, single episode, unspecified; M19.90 Unspecified osteoarthritis, unspecified site; E87.8 Other disorders of electrolyte and fluid balance, not elsewhere classified; E87.6 Hypokalemia; E89.0 Postprocedural hypothyroidism; R41.0 Disorientation, unspecified; F02.80 Dementia in other diseases classified elsewhere, unspecified severity, without behavioral disturbance, psychotic disturbance, mood disturbance, and anxiety; G30.9 Alzheimer's disease, unspecified; Z90.710 Acquired absence of both cervix and uterus; Z90.49 Acquired absence of other specified parts of digestive tract; Z88.1 Allergy status to other antibiotic agents; Z88.0 Allergy status to penicillin; Z88.7 Allergy status to serum and vaccine; Z79.899 Other long term (current) drug therapy
CPT/HCPCS: 36415; 70450; 71045; 80048; 80053; 81001; 82140; 83735; 84484; 85025; 85610; 85730; 93005; 99285; G0378; G0379; J1650; J3480; P9612; U0003-CS